=== PATIENT | female | born 2000 | race Two or more races ===

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

== ENCOUNTER 2022-07-14 17:59 | Emergency (ER) | payer BC, MEDICAID ==
[~2022-07-14] VITALS: Ht 160 cm; Wt 109.0 kg
[2022-07-14 18:30] LABS: Basophils # (auto) 0.2 10 ^3/uL (0-0.2); Basophils % (auto) 2.8 % (0.0-2.0); Eosinophils # (auto) 0.1 10 ^3/uL (0-0.8); Eosinophils % (auto) 1.9 % (0.0-7.0); Hematocrit 44.7 % (36.0-46.0); Hemoglobin 14.6 g/dL (12.2-16.2); Lymphocytes % (auto) 12.9 % (10.0-50.0); Mean Corpuscular Hgb Conc. 32.7 g/dL (32.0-36.0); Mean Corpuscular Volume 91.8 fL (80.0-100.0); Monocytes # (auto) 0.5 10 ^3/uL (0-1.3); Neutrophils # (auto) 5.8 10 ^3/uL (1.6-8.6); Neutrophils % (auto) 75.4 % (37.0-80.0); Nucleated Red Blood Cells % 0.1 %; Red Blood Cells 4.87 10^6/uL (4.0-5.20); Red Cell Distribution Width 13.4 % (11.8-14.3); White Blood Cell 7.7 10^3/uL (4.4-10.8)
[2022-07-14 18:52] LABS: Albumin 3.5 g/dL (3.4-5.0); BUN/Creatinine Ratio 17.3; Calcium 9.1 mg/dL (8.5-10.1); Magnesium 2.1 mg/dL (1.6-2.6); Potassium 4.4 mmol/L (3.5-5.1)
[2022-07-14 18:56] LABS: Bilirubin, Total 0.2 mg/dL (0.2-1.0); INR 0.9 (0.9-1.15); Partial Thromboplastin Time 29.5 sec (24.6-33.4); Total Protein 7.8 g/dL (6.4-8.2)
[2022-07-14] MEDS ORDERED: ACETAMINOPHEN 500 MG TAB PO ONE (19:00)
[2022-07-14] MEDS ORDERED: ONDANSETRON ODT 4 MG TAB PO ONE (19:00)
[2022-07-14 21:16] LABS: Urine Bacteria NONE SEEN /hpf (None Seen); Urine Blood Negative /uL (Negative); Urine Mucus FEW (None Seen); Urine Specific Gravity 1.019 (1.001-1.035); Urine WBC 1 /hpf (0 - 5)
[2022-07-14 21:33] LABS: Alcohol, Urine < 3.0 mg/dL (0-10); Amphetamine Screen, Urine NEGATIVE (NEGATIVE); Barbiturate Scree,Urine NEGATIVE (NEGATIVE); Benzodiazephine Screen, Urine NEGATIVE (NEGATIVE); Cannabinoid Screen, Urine POSITIVE (NEGATIVE); Cocaine Screen, Urine NEGATIVE (NEGATIVE)
[2022-07-14 21:40] LABS: Opiate Scree,Urine NEGATIVE (NEGATIVE); Phencyclidine Screen, Urine NEGATIVE (NEGATIVE)
[2022-07-14] MEDS ORDERED: GABA300C10 PO (23:01)
[2022-07-15] VITALS: BP 110/60
== END 2022-07-15 00:05 | disposition home or self-care (01) ==
LOC: ER 18:01
DX: R07.89 Other chest pain (principal); M54.14 Radiculopathy, thoracic region; I10 Essential (primary) hypertension
CPT/HCPCS: 36415; 71045; 80053; 80307; 81001; 83735; 83880; 84484; 85025; 85610; 85730; 93005; 99285; Q0162

== ENCOUNTER 2023-02-19 06:59 | Inpatient (IN) | payer MEDICAID ==
[~2023-02-19] VITALS: Ht 215.9 cm; Wt 135.4 kg
[~2023-02-19 06:59] MED LIST: GABA-1250 PO
[2023-02-19 07:31] LABS: Basophils # (auto) 0.1 10 ^3/uL (0-0.2); Basophils % (auto) 1.2 % (0.0-2.0); Eosinophils # (auto) 0.2 10 ^3/uL (0-0.8); Eosinophils % (auto) 2.8 % (0.0-7.0); Hematocrit 42.9 % (36.0-46.0); Hemoglobin 14.2 g/dL (12.2-16.2); Lymphocytes # (auto) 1.8 10 ^3/uL (0.4-5.4); Lymphocytes % (auto) 24.3 % (10.0-50.0); Mean Corpuscular Hemoglobin 30.6 pg (28.0-32.0); Mean Corpuscular Hgb Conc. 33.2 g/dL (32.0-36.0); Mean Corpuscular Volume 92.2 fL (80.0-100.0); Monocytes # (auto) 0.8 10 ^3/uL (0-1.3); Monocytes % (auto) 9.9 % (0.0-12.0); Neutrophils # (auto) 4.7 10 ^3/uL (1.6-8.6); Neutrophils % (auto) 61.8 % (37.0-80.0); Red Blood Cells 4.65 10^6/uL (4.0-5.20); Red Cell Distribution Width 13.6 % (11.8-14.3); White Blood Cell 7.6 10^3/uL (4.4-10.8)
[2023-02-19] MEDS ORDERED: SODIUM CHLORIDE 0.9% 1,000 ML IV ONE (07:45)
[2023-02-19] MEDS ORDERED: ONDANSETRON HCL 4 MG/2 ML VIAL IV ONE (07:45)
[2023-02-19] MEDS ORDERED: MORPHINE SULFATE 4 MG/ML SYR/VIAL IV ONE (07:45)
[2023-02-19 07:55] LABS: Alanine Aminotransferase 33 U/L (7-40); Alkaline Phosphatase 93 U/L (46-116); Carbon Dioxide 25.5 mmol/L (20-30); Chloride 108 mmol/L (98-107); Glucose 125 mg/dL (74-106)
[2023-02-19 07:56] LABS: Albumin 4.2 g/dL (3.2-4.8); Anion Gap 5.5 (5-15); Aspartate Aminotransferase 21 U/L (13-40); BUN/Creatinine Ratio 13.8 (10.0-20.0); Bilirubin, Total 0.2 mg/dL (0.2-1.0); Blood Urea Nitrogen 9 mg/dL (9-23); Lipase 42 U/L (12-53); Potassium 4.4 mmol/L (3.5-5.1); Sodium 139 mmol/L (136-145); Total Protein 7.4 g/dL (5.7-8.2)
[2023-02-19] MEDS ORDERED: FAMOTIDINE (10MG/ML) 2ML VL IV ONE (08:00)
[2023-02-19] MEDS ORDERED: MAALOX PLUS or MAALOX 30 ML PO ONE (08:00)
[2023-02-19] MEDS ORDERED: cefTRIAXone 1GM/50ML D5W 50 ML IV ONE (11:45)
[2023-02-19] MEDS ORDERED: SODIUM CHLORIDE 0.9% 1,000 ML IV SCH (11:45)
[2023-02-19] MEDS ORDERED: ACETAMINOPHEN 325 MG TAB PO PRN (11:45)
[2023-02-19 12:02] LABS: Urine Bacteria FEW /hpf (None Seen); Urine Blood Negative /uL (Negative); Urine Clarity Clear (Clear); Urine Color Yellow (Yellow); Urine Protein, UAD Negative (Negative); Urine Specific Gravity 1.018 (1.001-1.035); Urine Urobilinogen Normal (Negative); Urine WBC <1 /hpf (0 - 5)
[2023-02-19] MEDS: metroNIDAZOLE 500MG/100ML 100 ML IV SCH ×2 (14:46→22:01)
[2023-02-19] MEDS: HYDROcodone-ACET 5/325MG TAB PO PRN ×2 (14:46→20:14)
[2023-02-19 15:37] VITALS: BP 121/62; PULSE 68; RESP 20; TEMP 97.7; O2SAT 95
[2023-02-19 15:45] LABS: INR 0.97 (0.9-1.15); Partial Thromboplastin Time 27.7 SEC (24.5-34.5); Prothrombin Time 10.2 sec (9.3-11.8)
[2023-02-19 15:49] VITALS: BP 121/62; PULSE 68; RESP 20; O2SAT 95
[2023-02-19] MEDS: ONDANSETRON HCL 4 MG/2 ML VIAL IV PRN (20:14)
[2023-02-19 22:00] VITALS: BP 124/73; PULSE 82; RESP 18; TEMP 98.4; O2SAT 94
[2023-02-19] MEDS: SODIUM CHLORIDE 0.9% 1,000 ML IV SCH (22:01)
[2023-02-19] MEDS: MORPHINE SULFATE INJ 2 MG/ml SYRG IV PRN (23:37)
[2023-02-20] VITALS (8 sets, daily range): BP systolic 98–106; BP diastolic 51–61; PULSE 61–83; RESP 17–20; TEMP 97.9–98.7; O2SAT 93–100
[2023-02-20] MEDS: SODIUM CHLORIDE 0.9% 1,000 ML IV SCH ×2 (01:00→11:00)
[2023-02-20] MEDS: metroNIDAZOLE 500MG/100ML 100 ML IV SCH ×3 (05:45→22:23)
[2023-02-20 05:57] LABS: Basophils # (auto) 0 10 ^3/uL (0-0.2); Basophils % (auto) 0.5 % (0.0-2.0); Eosinophils # (auto) 0.2 10 ^3/uL (0-0.8); Eosinophils % (auto) 3.3 % (0.0-7.0); Hematocrit 40.2 % (36.0-46.0); Hemoglobin 13.7 g/dL (12.2-16.2); Lymphocytes # (auto) 1.9 10 ^3/uL (0.4-5.4); Lymphocytes % (auto) 30.6 % (10.0-50.0); Mean Corpuscular Hemoglobin 31.2 pg (28.0-32.0); Mean Corpuscular Hgb Conc. 34.1 g/dL (32.0-36.0); Mean Corpuscular Volume 91.4 fL (80.0-100.0); Monocytes # (auto) 0.6 10 ^3/uL (0-1.3); Monocytes % (auto) 9.9 % (0.0-12.0); Neutrophils # (auto) 3.5 10 ^3/uL (1.6-8.6); Neutrophils % (auto) 55.7 % (37.0-80.0); Nucleated Red Blood Cells % 0.1 %; Red Blood Cells 4.39 10^6/uL (4.0-5.20); White Blood Cell 6.3 10^3/uL (4.4-10.8)
[2023-02-20 06:03] LABS: Alanine Aminotransferase 711 U/L (7-40); Albumin 3.8 g/dL (3.2-4.8); Alkaline Phosphatase 132 U/L (46-116); Anion Gap 7.3 (5-15); Aspartate Aminotransferase 787 U/L (13-40); BUN/Creatinine Ratio 9.1 (10.0-20.0); Bilirubin, Total 2.5 mg/dL (0.2-1.0); Blood Urea Nitrogen 6 mg/dL (9-23); Calcium 8.5 mg/dL (8.5-10.1); Carbon Dioxide 25.7 mmol/L (20-30); Chloride 106 mmol/L (98-107); Glucose 91 mg/dL (74-106); Potassium 3.8 mmol/L (3.5-5.1); Sodium 139 mmol/L (136-145); Total Protein 6.7 g/dL (5.7-8.2)
[2023-02-20] MEDS: cefTRIAXone 1GM/50ML D5W 50 ML IV SCH (08:48)
[2023-02-20] MEDS: FAMOTIDINE (10MG/ML) 2ML VL IV SCH (09:15)
[2023-02-20] MEDS ORDERED: ceFAZolin 1GM/50ML 100 ML IV ONE (12:29)
[2023-02-20] MEDS ORDERED: SUCCINYLCHOLINE CHLORIDE 20 MG/ML 10ML VIAL IV ONE (12:34)
[2023-02-20] MEDS ORDERED: LIDOCAINE 2% (LOCAL ANESTH.) PF 5ml SDV IJ ONE (12:34)
[2023-02-20] MEDS ORDERED: MIDAZOLAM HCL 2MG/2ML 2ml VIAL (1mg/ml) ONE (13:54)
[2023-02-20] MEDS ORDERED: fentaNYL CITRATE 100 MCG/2 ML VL ONE ×2 (13:54→14:57)
[2023-02-20] MEDS ORDERED: ONDANSETRON HCL 4 MG/2 ML VIAL IV PRN (14:45)
[2023-02-20] MEDS ORDERED: HYDROmorphone HCL 2 MG/ML VL/or syr IV PRN (14:45)
[2023-02-20] MEDS: D5W/SOD CHL 0.45%/KCL 20MEQ 1,000 ML IV SCH (15:00)
[2023-02-20] MEDS ORDERED: PROPOFOL 10 MG/ML 20 ML IV ONE (15:16)
[2023-02-20] MEDS ORDERED: ROCURONIUM 10MG/ML 10ML VIAL IV ONE (15:17)
[2023-02-20] MEDS ORDERED: GLYCOPYRROLATE 0.2 MG/ML 1ML VIAL ONE (15:17)
[2023-02-20] MEDS ORDERED: NEOSTIGMINE 1 MG/ML INJ (10mg/10ML VIAL) ONE (15:17)
[2023-02-20] MEDS ORDERED: ONDANSETRON HCL 4 MG/2 ML VIAL ONE (15:18)
[2023-02-20] MEDS: HYDROmorphone HCL 2 MG/ML VL/or syr IV PRN ×4 (15:23→15:53)
[2023-02-20] MEDS: MORPHINE SULFATE INJ 2 MG/ml SYRG IV PRN ×2 (17:58→22:37)
[2023-02-20] MEDS: ONDANSETRON HCL 4 MG/2 ML VIAL IV PRN (19:50)
[2023-02-20] MEDS: HYDROcodone-ACET 5/325MG TAB PO PRN (20:01)
[2023-02-21] MEDS: D5W/SOD CHL 0.45%/KCL 20MEQ 1,000 ML IV SCH ×3 (02:59→21:00)
[2023-02-21] MEDS: MORPHINE SULFATE INJ 2 MG/ml SYRG IV PRN ×2 (04:51→18:19)
[2023-02-21 05:00] VITALS: BP 105/68; PULSE 64; RESP 19; TEMP 98.4; O2SAT 94
[2023-02-21] MEDS: metroNIDAZOLE 500MG/100ML 100 ML IV SCH ×3 (06:16→21:30)
[2023-02-21 06:23] LABS: Basophils # (auto) 0.1 10 ^3/uL (0-0.2); Basophils % (auto) 0.7 % (0.0-2.0); Chloride 106 mmol/L (98-107); Eosinophils # (auto) 0.1 10 ^3/uL (0-0.8); Eosinophils % (auto) 1.5 % (0.0-7.0); Hematocrit 40.8 % (36.0-46.0); Hemoglobin 13.6 g/dL (12.2-16.2); Lymphocytes # (auto) 1.2 10 ^3/uL (0.4-5.4); Lymphocytes % (auto) 17.3 % (10.0-50.0); Mean Corpuscular Hemoglobin 30.4 pg (28.0-32.0); Mean Corpuscular Hgb Conc. 33.4 g/dL (32.0-36.0); Mean Corpuscular Volume 91.1 fL (80.0-100.0); Monocytes # (auto) 0.7 10 ^3/uL (0-1.3); Monocytes % (auto) 9.5 % (0.0-12.0); Nucleated Red Blood Cells % 0.1 %; Potassium 3.7 mmol/L (3.5-5.1); Red Blood Cells 4.48 10^6/uL (4.0-5.20); Sodium 137 mmol/L (136-145); White Blood Cell 7.1 10^3/uL (4.4-10.8)
[2023-02-21 06:24] LABS: Anion Gap 6.6 (5-15); Calcium 8.8 mg/dL (8.7-10.4); Carbon Dioxide 24.4 mmol/L (20-30)
[2023-02-21 06:29] LABS: Glucose 118 mg/dL (74-106)
[2023-02-21 06:30] LABS: BUN/Creatinine Ratio 9.3 (10.0-20.0); Blood Urea Nitrogen < 5 mg/dL (9-23)
[2023-02-21 06:31] LABS: Bilirubin, Total 3.4 mg/dL (0.2-1.0)
[2023-02-21 07:46] LABS: Albumin 3.9 g/dL (3.2-4.8); Bilirubin, Direct 2.3 mg/dL (<0.3); Bilirubin, Total 3.4 mg/dL (0.2-1.0); Total Protein 6.9 g/dL (5.7-8.2)
[2023-02-21 08:55] VITALS: BP 112/57; PULSE 70; RESP 18; TEMP 98.2; O2SAT 97
[2023-02-21] MEDS: HYDROcodone-ACET 5/325MG TAB PO PRN (09:21)
[2023-02-21] MEDS: cefTRIAXone 1GM/50ML D5W 50 ML IV SCH (09:21)
[2023-02-21] MEDS: FAMOTIDINE (10MG/ML) 2ML VL IV SCH (09:21)
[2023-02-21] MEDS ORDERED: KETOROLAC TROMETH 30 MG/ML 1ML VIAL IV PRN (14:15)
[2023-02-21] MEDS ORDERED: KETOROLAC TROMETH 30 MG/ML 1ML VIAL IV ONE (14:15)
[2023-02-21 15:05] VITALS: BP 107/51; PULSE 57; RESP 19; TEMP 98.9; O2SAT 94
[2023-02-21 16:58] VITALS: BP 113/62; PULSE 69; RESP 18; TEMP 98.3; O2SAT 94
[2023-02-21] MEDS: ONDANSETRON HCL 4 MG/2 ML VIAL IV PRN (18:19)
[2023-02-21 19:50] VITALS: PULSE 65; RESP 16; O2SAT 96
[2023-02-21] MEDS ORDERED: TEMAZEPAM 15 MG CAP PO ONE (20:45)
[2023-02-21 21:50] VITALS: BP 128/69; PULSE 65; RESP 20; TEMP 97.4; O2SAT 99
[2023-02-22 05:13] VITALS: BP 97/54; PULSE 80; RESP 20; TEMP 98.4; O2SAT 96
[2023-02-22] MEDS: metroNIDAZOLE 500MG/100ML 100 ML IV SCH (05:43)
[2023-02-22 06:51] LABS: Basophils # (auto) 0.1 10 ^3/uL (0-0.2); Basophils % (auto) 0.9 % (0.0-2.0); Eosinophils # (auto) 0.2 10 ^3/uL (0-0.8); Eosinophils % (auto) 3.2 % (0.0-7.0); Hematocrit 41.5 % (36.0-46.0); Hemoglobin 13.6 g/dL (12.2-16.2); Lymphocytes # (auto) 1.8 10 ^3/uL (0.4-5.4); Lymphocytes % (auto) 27.4 % (10.0-50.0); Mean Corpuscular Hemoglobin 30.1 pg (28.0-32.0); Mean Corpuscular Hgb Conc. 32.7 g/dL (32.0-36.0); Monocytes # (auto) 0.7 10 ^3/uL (0-1.3); Monocytes % (auto) 10.1 % (0.0-12.0); Neutrophils # (auto) 3.8 10 ^3/uL (1.6-8.6); Neutrophils % (auto) 58.4 % (37.0-80.0); Red Blood Cells 4.51 10^6/uL (4.0-5.20); White Blood Cell 6.5 10^3/uL (4.4-10.8)
[2023-02-22 06:55] LABS: Alanine Aminotransferase 448 U/L (7-40); Albumin 3.7 g/dL (3.2-4.8); Alkaline Phosphatase 162 U/L (46-116); Anion Gap 7.4 (5-15); Aspartate Aminotransferase 169 U/L (13-40); Calcium 8.6 mg/dL (8.7-10.4); Carbon Dioxide 23.6 mmol/L (20-30); Chloride 107 mmol/L (98-107); Glucose 95 mg/dL (74-106); Potassium 3.4 mmol/L (3.5-5.1); Sodium 138 mmol/L (136-145)
[2023-02-22 06:56] LABS: BUN/Creatinine Ratio 7.6 (10.0-20.0); Blood Urea Nitrogen < 5 mg/dL (9-23); Total Protein 6.7 g/dL (5.7-8.2)
[2023-02-22] MEDS: D5W/SOD CHL 0.45%/KCL 20MEQ 1,000 ML IV SCH (07:09)
[2023-02-22] MEDS ORDERED: POTASSIUM CHL 20 Meq TABLET PO ONE (07:15)
[2023-02-22 08:00] VITALS: O2SAT 99
[2023-02-22 09:00] VITALS: BP 139/69; PULSE 81; RESP 19; TEMP 98.3; O2SAT 96
[2023-02-22] MEDS: cefTRIAXone 1GM/50ML D5W 50 ML IV SCH (09:25)
[2023-02-22] MEDS: FAMOTIDINE (10MG/ML) 2ML VL IV SCH (09:25)
[2023-02-22] MEDS ORDERED: CEPH500T PO (11:14)
[2023-02-22] MEDS ORDERED: TRAM50TA2 PO (11:14)
[2023-02-22 12:03] VITALS: BP 139/69; PULSE 81; RESP 19; TEMP 98.3; O2SAT 96
== END 2023-02-22 12:35 | disposition home or self-care (01) | DRG 263 ==
LOC: ER 06:59 → OVERFLOW 11:51 → EAST 15:38
PROVIDERS: ADMIT Internal Medicine
PROC: 0FT44ZZ Resection of Gallbladder, Percutaneous Endoscopic Approach (ICD-10-PCS; principal; 2023-02-20 13:46)
DX: K80.00 Calculus of gallbladder with acute cholecystitis without obstruction (principal); K76.0 Fatty (change of) liver, not elsewhere classified; E66.01 Morbid (severe) obesity due to excess calories; K57.30 Diverticulosis of large intestine without perforation or abscess without bleeding; I10 Essential (primary) hypertension; Z82.49 Family history of ischemic heart disease and other diseases of the circulatory system; Z68.29 Body mass index [BMI] 29.0-29.9, adult
CPT/HCPCS: 36415; 74176; 74181; 76705; 80048; 80053; 80076; 81001; 82247; 83690; 84484; 84702; 85025; 85610; 85730; 86850; 86900; 86901; 93005; 96365; 96375; 96376; G0378; J0330; J0690; J0696; J1885; J2001; J2250; J2405; J2704; J3490

== ENCOUNTER 2024-06-22 19:26 | Inpatient (IN) | payer MEDICAID ==
[~2024-06-22] VITALS: Ht 160 cm; Wt 100.0 kg
[~2024-06-22 19:26] MED LIST changes: +CEPH500T PO; +TRAM50TA2 PO; +ZOFR4T PO
[2024-06-22 20:23] LABS: Basophils # (auto) 0.1 10 ^3/uL (0-0.2); Eosinophils # (auto) 0.1 10 ^3/uL (0-0.8); Eosinophils % (auto) 1.1 % (0.0-7.0); Hematocrit 46.8 % (36.0-46.0); Hemoglobin 16.1 g/dL (12.2-16.2); Lymphocytes # (auto) 1.1 10 ^3/uL (0.4-5.4); Lymphocytes % (auto) 12.2 % (10.0-50.0); Mean Corpuscular Hemoglobin 33.9 pg (28.0-32.0); Mean Corpuscular Hgb Conc. 34.4 g/dL (32.0-36.0); Mean Corpuscular Volume 98.6 fL (80.0-100.0); Monocytes # (auto) 0.4 10 ^3/uL (0-1.3); Monocytes % (auto) 4.2 % (0.0-12.0); Neutrophils # (auto) 7.3 10 ^3/uL (1.6-8.6); Neutrophils % (auto) 81.5 % (37.0-80.0); Nucleated Red Blood Cells % 0.1 %; Platelet Count (auto) 283 10^3/uL (140-450); Red Blood Cells 4.75 10^6/uL (4.0-5.20); Red Cell Distribution Width 14.2 % (11.8-14.3); White Blood Cell 8.9 10^3/uL (4.4-10.8)
[2024-06-22 20:29] LABS: Chloride 107 mmol/L (98-107); Sodium 141 mmol/L (136-145)
[2024-06-22 20:30] LABS: Anion Gap 9 (5-15); Carbon Dioxide 25 mmol/L (20-31)
[2024-06-22 20:31] LABS: Calcium 9.7 mg/dL (8.7-10.4)
--- NOTE | 2024-06-22 20:32 | ED.PDOC ---
History of Present Illness HPI Comments 24 y/o F, with a Hx of anxiety, HTN, obesity, gastric sleeve, cholecystectomy, and marijuana and nicotine vape use, presents with c/o non-radiating, suprapubic abdominal pain and nausea, today. Patient endorses on sudden and unprovoked onset of symptoms at around 1730, this evening. She comments on pain worsening whenever breathing or moving and describes it as "pushing" and "stabbing" in quality. Patient also reports on not eating any food for the past 2x days and having chronic, intermittent nausea and vomiting symptoms since having a gastric sleeve and ulcers in October 2023. Patient denies any vomiting, diarrhea, urinary symptoms, vaginal bleeding, fever, chills, or other associated symptoms or modifiers at this time. Chief Complaint: Abdominal Pain Time Seen by MD: 19:45 Primary Care Provider: NONE Reviewed Notes: Nurses Notes, Medications, Allergies Allergies: Coded Allergies: NO KNOWN ALLERGIES (Unverified , 07/31/18) Home Meds Active Scripts Ondansetron Odt 4MG Tab (ZOFRAN PO) 4 Mg Tb, 4 MG PO Q8HP PRN for 5 Days, #15 TAB ODT TAB-DISSOLVE IN MOUTH, THEN SWALLOW Prov:ESTELLA VILLATORO MD 09/06/23 Tramadol Hcl (Tramadol Hcl) 50 Mg Tab, 50 MG PO TIDP PRN for 5 Days, #15 TAB Prov:JENY KRAUS MD 02/22/23 Cephalexin Monohydrate (Cephalexin) 500 Mg Tab, 1 TAB PO TID for 7 Days, #21 TAB Prov:JENY KRAUS MD 02/22/23 Gabapentin (Gabapentin) 300 Mg Cap, 1 CAP PO TID, #30 CAP 5 Refills Prov:PITA NICKERSON PAC 07/14/22 Information Source: Patient Mode of Arrival: Ambulatory Severity: Moderate Timing: Hours Duration: Since onset Prehospital treatment: None Past Medical History PAST MEDICAL HISTORY: Anxiety, HTN Past Medical History (Other): obesity Surgical History: Cholecystectomy Surgical History (Other): gastric sleeve 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: 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 all 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 REPLANTER Hx Family History Family History: Family hx of HTN Social History Smoker: Other (nicotine vape use ) Alcohol: Denies ETOH Use Drugs: Marijuana Lives In: Home Gastrointestinal: reports: abdominal pain, nausea All Other Systems: Reviewed and Negative (negative unless otherwise stated above or in HPI) Physical Exam General Appearance: No Apparent Distress, Obese HEENT: Normal ENT Inspection, Pharynx Normal, TMs Normal Neck: Full Range of Motion, Non-Tender, Normal, Normal Inspection Respiratory: Chest Non-Tender, Lungs Clear, No Accessory Muscle Use, No Respiratory Distress, Normal Breath Sounds Cardiovascular: No Edema, No JVD, No Murmur, No Gallop, Normal Peripheral Pulses, Regular Rate/Rhythm Breast Exam: Deferred Gastrointestinal: No Organomegaly, No Pulsatile Mass, Normal Bowel Sounds, Soft, Suprapubic (tenderness ), Tenderness (suprapubic region ) Genitalia: Deferred Pelvic: Deferred Rectal: Deferred Extremities: No calf tenderness, Normal capillary refill, Normal inspection, Normal range of motion, Non-tender, No pedal edema Musculoskeletal : Apperance: Normal Neurologic: Alert, 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 Was a procedure done?: No Differential Dx Considerations may include: gastritis, gastroenteritis, PUD, GERD, spoiled food, , cystitis, PID, acute abdomen, cannabinoid hyperemesis syndrome X-Ray, Labs, Meds, VS Vital Signs Date Time Temp Pulse Resp B/P (MAP) Pulse Ox O2 Delivery O2 Flow Rate FiO2 06/22/24 19:40 97.9 67 18 131/76 (94) 96 Lab Test 06/22/24 19:55 06/22/24 19:49 Range/Units White Blood Count 8.9 4.4-10.8 10^3/uL Red Blood Count 4.75 4.0-5.20 10^6/uL Hemoglobin 16.1 12.2-16.2 g/dL Hematocrit 46.8 H 36.0-46.0 % Mean Corpuscular Volume 98.6 80.0-100.0 fL Mean Corpuscular Hemoglobin 33.9 H 28.0-32.0 pg Mean Corpuscular Hemoglobin Concent 34.4 32.0-36.0 g/dL Red Cell Distribution Width 14.2 11.8-14.3 % Platelet Count 283 140-450 10^3/uL Mean Platelet Volume 9.0 6.9-10.8 fL Neutrophils (%) (Auto) 81.5 H 37.0-80.0 % Lymphocytes (%) (Auto) 12.2 10.0-50.0 % Monocytes (%) (Auto) 4.2 0.0-12.0 % Eosinophils (%) (Auto) 1.1 0.0-7.0 % Basophils (%) (Auto) 1.0 0.0-2.0 % Neutrophils # (Auto) 7.3 1.6-8.6 10 ^3/uL Lymphocytes # (Auto) 1.1 0.4-5.4 10 ^3/uL Monocytes # (Auto) 0.4 0-1.3 10 ^3/uL Eosinophils # (Auto) 0.1 0-0.8 10 ^3/uL Basophils # (Auto) 0.1 0-0.2 10 ^3/uL Nucleated Red Blood Cells 0.1 % Sodium Level 141 136-145 mmol/L Potassium Level 3.4 L 3.5-5.1 mmol/L Chloride Level 107 98-107 mmol/L Carbon Dioxide Level 25 20-31 mmol/L Anion Gap 9 5-15 Blood Urea Nitrogen < 5 L 9-23 mg/dL Creatinine 0.58 0.550-1.02 mg/dL Glomerular Filtration Rate Calc 131 >90 mL/min BUN/Creatinine Ratio 8.6 L 10.0-20.0 Serum Glucose 80 74-106 mg/dL Calcium Level 9.7 8.7-10.4 mg/dL Lipase 29 12-53 U/L Urine Color Light-yellow Yellow Urine Clarity Clear Clear Urine pH 6.5 5.0-9.0 Urine Specific [place] 1.010 1.001-1.035 Urine Protein Negative Negative Urine Ketones Negative Negative Urine Blood Negative Negative /uL Urine Nitrite Negative Negative Urine Bilirubin Negative Negative Urine Urobilinogen Normal Negative mg/dL Urine Leukocyte Esterase Negative Negative /uL Urine RBC <1 0 - 4 /hpf Urine WBC 5 0 - 5 /hpf Urine Squamous Epithelial Cells Few <5 /hpf Urine Bacteria None seen None Seen /hpf Urine Glucose Normal Normal mg/dL Urine Opiates Screen Neg NEGATIVE Urine Fentanyl Screen Neg NEGATIVE Urine Barbiturates Screen Neg NEGATIVE Urine Phencyclidine Screen Neg NEGATIVE Urine Amphetamines Screen Neg NEGATIVE Urine Benzodiazepines Screen Neg NEGATIVE Urine Cocaine Screen Neg NEGATIVE Urine Cannabinoids Screen Pos NEGATIVE Current Medications Medications (Trade) Dose Ordered Sig/Chikis Route Start Time Stop Time Status Last Admin Ondansetron HCl (Zofran Po) 4 mg ONCE ONCE PO 06/22/24 20:00 06/22/24 20:01 DC 06/22/24 22:11 Acetaminophen/ Hydrocodone Bitart ([place] 10/325MG Tab) 1 tab ONCE ONCE PO 06/22/24 20:00 06/22/24 20:01 DC 06/22/24 22:10 [place] [address] Ph: [phone] DIAGNOSTIC IMAGING Diagnostic Imaging Report : [id number] Signed PATIENT: ARJUN VASQUEZACCT: [id number] UNIT: [id number] : 2000 LOC: ER ROOM / BED: / AGE / SEX: 24 / F ADM STATUS: REG ER SERVICE 53 ORDERING PHYSICIAN: PRISCILLA GUO MD PROCEDURE(s): ABPL - CT AB PEL WO CON-NO ORAL OR IV REASON: abd pain; s/p lap band ORDER NUMBER(s): [id number], ACCESSION NUMBER(s): [id number] CT SCAN ABDOMEN AND PELVIS WITHOUT CONTRAST CLINICAL HISTORY: abd pain; s/p lap band TECHNIQUE: Helical axial images are obtained from the lung bases through the pelvis without oral contrast. No intravenous contrast was administered. Coronal and sagittal reformatted images were generated from thin section reconstructions. One or more of the following radiation dose reduction techniques were used for this examination: automated exposure control, adjustment of the mA and/or kV according to patient size, use of iterative reconstruction technique. COMPARISON: CT CT AB PEL WO CON-NO ORAL OR IV on DOS: 09/06/23 FINDINGS: LOWER THORAX: Approximately 5 mm pulmonary nodule noted in the anterior right lung base. ABDOMEN AND PELVIS: Evaluation of visceral and vascular structures is limited due to lack of contrast administration. As visualized, the unenhanced liver, spleen, pancreas and adrenals appear grossly unremarkable. The gallbladder is surgically absent. No appreciable biliary ductal dilatation. Stable appearing small ventral fat containing hernia anterior to the left hepatic lobe. No hydroureteronephrosis or sizable, obstructing urinary tract calculi identified. No evidence of abdominal aortic aneurysm. Patient appears to be status post sleeve gastrectomy. No evidence of small-bowel obstruction. Normal caliber appendix. Colonic diverticulosis. Fat stranding noted adjacent to the distal descending colon which contains a tiny focus of extraluminal air. No sizable pericolonic fluid collections identified at this time. No sizable bladder calculus. Small amount of free pelvic fluid may be reactive. No destructive osseous lesions identified. IMPRESSION: Diverticulitis with microperforation involving the distal descending colon. Othe rwise no sizable, pericolonic fluid collections identified at this time. Recommend follow-up to resolution. Other findings as above. ATED BY: TEZ ABARCA MD DICTATED DATE/TIME: 06/22/242247 SIGNED BY: TEZ ABARCA MD SIGNED DATE/TIME: 06/22/242247 CC: CBC and CMP were normal. UA is normal. UDS shows positive for marijuana. Patient was given IV fluids NG tube and antibiotics and analgesics for di verticulitis with microperforation her radiation. The surgeon will be consulted and the patient will be admitted to the hospitalist for further evaluation. Time of 1ST Reevaluation: 20:15 Reevaluation 1ST: Unchanged Patient Education/Counseling: Diagnosis, Treatment Family Education/Counseling: No Family Present Departure 1 Departure Time of Disposition: 00:49 Impression: Primary Impression: Diverticulitis of intestine Qualified Codes: K57.20 - Diverticulitis of large intestine with perforation and abscess without bleeding Disposition: ADMITTED INPATIENT Admit to: Med Surg Condition: Guarded Critical Care Note Critical Care Time?: Yes (35 min-critical care time only) Stability Stability form required: No Heart Score Heart Score: Heart Score Response (Comments) Value History N/A 0 EKG N/A 0 Age N/A 0 Risk Factors N/A 0 Troponin N/A 0 Total 0 I personally scribed for PRISCILLA GUO MD ([email or web address]) on 06/22/24 at 20:32. Electronically submitted by Dakota Thomas ([email or web address]). PRISCILLA GUO MD Jun 22, 2024 20:32
[2024-06-22 20:35] LABS: Glucose 80 mg/dL (74-106)
[2024-06-22 20:36] LABS: Lipase 29 U/L (12-53)
[2024-06-22 20:48] LABS: BUN/Creatinine Ratio 8.6 (10.0-20.0); Blood Urea Nitrogen < 5 mg/dL (9-23); Potassium 3.4 mmol/L (3.5-5.1)
[2024-06-22] MEDS: HYDROcodone-ACET 10/325MG TAB PO ONE (22:10)
[2024-06-22] MEDS: ONDANSETRON ODT 4 MG TAB PO ONE (22:11)
[2024-06-22 22:15] LABS: Urine Bacteria None Seen /hpf (None Seen)
[2024-06-22 22:46] LABS: Amphetamine Screen, Urine Neg (NEGATIVE); Barbiturate Scree,Urine Neg (NEGATIVE); Benzodiazephine Screen, Urine Neg (NEGATIVE); Cannabinoid Screen, Urine Pos (NEGATIVE); Cocaine Screen, Urine Neg (NEGATIVE); Opiate Scree,Urine Neg (NEGATIVE); Phencyclidine Screen, Urine Neg (NEGATIVE)
--- NOTE | 2024-06-22 22:50 | DVH ---
CT SCAN ABDOMEN AND PELVIS WITHOUT CONTRAST CLINICAL HISTORY: abd pain; s/p lap band TECHNIQUE: Helical axial images are obtained from the lung bases through the pelvis without oral cont rast. No intravenous contrast was administered. Coronal and sagittal reformatted images were generate d from thin section reconstructions. One or more of the following radiation dose reduction techniques were used for this examination: automated exposure control, adjustment of the mA and/or kV according to patient size, use of iterative reconstruction technique. COMPARISON: CT CT AB PEL WO CON-NO ORAL OR IV on DOS: 09/06/23 FINDINGS: LOWER THORAX: Approximately 5 mm pulmonary nodule noted in the anterior right lung base. ABDOMEN AND PELVIS: Evaluation of visceral and vascular structures is limited due to lack of contrast administration. As visualized, the unenhanced liver, spleen, pancreas and adrenals appear grossly unremarkable. The g allbladder is surgically absent. No appreciable biliary ductal dilatation. Stable appearing small ventral fat containing hernia anterior to the left hepatic lobe. No hydroureteronephrosis or sizable, obstructing urinary tract calculi identified. No evidence of abdominal aortic aneurysm. Patient appears to be status post sleeve gastrectomy. No evidence of small-bowel obstruction. Normal caliber appendix. Colonic diverticulosis. Fat stranding noted adjacent to the distal descending colon which contains a tiny focus of extraluminal air. No sizable pericolonic fluid collections identified at this time. No sizable bladder calculus. Small amount of free pelvic fluid may be reactive. No destructive osseous lesions identified. IMPRESSION: Diverticulitis with microperforation involving the distal descending colon. Otherwise no sizable, per icolonic fluid collections identified at this time. Recommend follow-up to resolution. Other findings as above.
[2024-06-22 23:06] LABS: Urine Blood Negative /uL (Negative); Urine Clarity Clear (Clear); Urine Color Light-Yellow (Yellow); Urine Protein, UAD Negative (Negative); Urine Squamous Epithelial Cell FEW /hpf (<5); Urine Urobilinogen Normal (Negative); Urine WBC 5 /hpf (0 - 5); Urine pH 6.5 (5.0-9.0)
[2024-06-23] VITALS (9 sets, daily range): BP systolic 104–137; BP diastolic 55–79; PULSE 46–62; RESP 16–18; TEMP 97.8–98.4; O2SAT 18–99
[2024-06-23] MEDS ORDERED: fentaNYL CITRATE 100 MCG/2 ML VL IV ONE (00:30)
[2024-06-23] MEDS: metroNIDAZOLE 500MG/100ML 100 ML IV ONE (03:00)
[2024-06-23] MEDS: levoFLOXacin 500MG 100 ML IV ONE (03:00)
[2024-06-23] MEDS: MORPHINE SULFATE INJ 2 MG/ml SYRG IV PRN (03:50)
[2024-06-23] MEDS: SODIUM CHLORIDE 0.9% 3,000 ML IV ONE (04:14)
--- NOTE | 2024-06-23 04:29 | DVHHP2 ---
History of Present Illness Reason for Visit: Abdominal pain History of Present Illness 24-year-old female presents for evaluation of abdominal pain. Patient presents with a one day history of lower abdominal/suprapubic abdominal pain that is nonradiating with associated nausea. She also reports intermittent episodes of chills. No diarrhea. No other acute complaints reported. Past Medical History Hypertension anxiety Past Surgical History Cholecystectomy and gastric sleeve Family History Hypertension Smoke: No ALCOHOL: none Drugs: Marijuana Lives: with Family Review of Systems Review of Systems Review of systems are currently negative otherwise addressed in HPI. Allergies: Coded Allergies: NO KNOWN ALLERGIES (Unverified , 07/31/18) Medications Current Medications Medications Dose Ordered Sig/Chikis Route Start Time Stop Time Status Last Admin Dose Admin Ceftriaxone Sodium 50 ml @ 100 mls/hr DAILY@09 IV 06/23/24 09:00 Metronidazole 100 ml @ 100 mls/hr Q8HR IV 06/23/24 06:00 Sodium Chloride 1,000 ml @ 90 mls/hr Q11H7M IV 06/23/24 01:45 Ondansetron HCl 4 mg Q4HP PRN IV 06/23/24 01:45 Morphine Sulfate 2 mg Q4HPRN PRN IV 06/23/24 01:45 06/23/24 03:50 2 MG Exam Vital Signs Vital Signs Date Time Temp Pulse Resp B/P (MAP) Pulse Ox O2 Delivery O2 Flow Rate FiO2 06/23/24 03:50 63 16 118/66 06/22/24 19:40 97.9 96 Exam Gen: 24-year-old female in mild distress Skin: Warm, dry, normal color and texture, no rash. HEENT: Normocephalic atraumatic, mucous membranes moist and pink. Neck: Cervical and supraclavicular nodes normal without enlargement, trachea is midline, thyroid gland is normal without masses. Pulmonary: Clear to auscultation and percussion bilaterally. Cardiac: Regular rate and rhythm. No murmur Abdomen: Soft, suprapubic tenderness, nondistended, bowel sounds present all 4 quadrants, no guarding, no rigidity, no organomegaly. Extremities: No cyanosis, clubbing, no edema Neuro: Cranial nerves II through XII grossly intact, normal affect and speech, no focal motor deficits. Labs/Xrays ORDERING PHYSICIAN: PRISCILLA GUO MD PROCEDURE(s): ABPL - CT AB PEL WO CON-NO ORAL OR IV REASON: abd pain; s/p lap band ORDER NUMBER(s): [id number], ACCESSION NUMBER(s): [id number] CT SCAN ABDOMEN AND PELVIS WITHOUT CONTRAST CLINICAL HISTORY: abd pain; s/p lap band TECHNIQUE: Helical axial images are obtained from the lung bases through the pelvis without oral contrast. No intravenous contrast was administered. Coronal and sagittal reformatted images were generated from thin section recons tructions. One or more of the following radiation dose reduction techniques were used for this examination: automated exposure control, adjustment of the mA and/or kV according to patient size, use of iterative reconstruction technique. COMPARISON: CT CT AB PEL WO CON-NO ORAL OR IV on DOS: 09/06/23 FINDINGS: LOWER THORAX: Approximately 5 mm pulmonary nodule noted in the anterior right lung base. ABDOMEN AND PELVIS: Evaluation of visceral and vascular structures is limited due to lack of contrast administration. As visualized, the unenhanced liver, spleen, pancreas and adrenals appear grossly unremarkable. The gallbladder is surgically absent. No appreciable biliary ductal dilatation. Stable appearing small ventral fat containing hernia anterior to the left hepatic lobe. No hydroureteronephrosis or sizable, obstructing urinary tract calculi identified. No evidence of abdominal aortic aneurysm. Patient appears to be status post sleeve gastrectomy. No evidence of small-bowel obstruction. Normal caliber appendix. Colonic diverticulosis. Fat stranding noted adjacent to the distal descending colon which contains a tiny focus of ex traluminal air. No sizable pericolonic fluid collections identified at this time. No sizable bladder calculus. Small amount of free pelvic fluid may be reactive. No destructive osseous lesions identified. IMPRESSION: Diverticulitis with microperforation involving the distal descending colon. Otherwise no sizable, pericolonic fluid collections identified at this time. Recommend follow-up to resolution. Other findings as above. Labs Test 06/22/24 19:55 06/22/24 19:49 Range/Units White Blood Count 8.9 4.4-10.8 10^3/uL Red Blood Count 4.75 4.0-5.20 10^6/uL Hemoglobin 16.1 12.2-16.2 g/dL Hematocrit 46.8 H 36.0-46.0 % Mean Corpuscular Volume 98.6 80.0-100.0 fL Mean Corpuscular Hemoglobin 33.9 H 28.0-32.0 pg Mean Corpuscular Hemoglobin Concent 34.4 32.0-36.0 g/dL Red Cell Distribution Width 14.2 11.8-14.3 % Platelet Count 283 140-450 10^3/uL Mean Platelet Volume 9.0 6.9-10.8 fL Neutrophils (%) (Auto) 81.5 H 37.0-80.0 % Lymphocytes (%) (Auto) 12.2 10.0-50.0 % Monocytes (%) (Auto) 4.2 0.0-12.0 % Eosinophils (%) (Auto) 1.1 0.0-7.0 % Basophils (%) (Auto) 1.0 0.0-2.0 % Neutrophils # (Auto) 7.3 1.6-8.6 10 ^3/uL Lymphocytes # (Auto) 1.1 0.4-5.4 10 ^3/uL Monocytes # (Auto) 0.4 0-1.3 10 ^3/uL Eosinophils # (Auto) 0.1 0-0.8 10 ^3/uL Basophils # (Auto) 0.1 0-0.2 10 ^3/uL Nucleated Red Blood Cells 0.1 % Sodium Level 141 136-145 mmol/L Potassium Level 3.4 L 3.5-5.1 mmol/L Chloride Level 107 98-107 mmol/L Carbon Dioxide Level 25 20-31 mmol/L Anion Gap 9 5-15 Blood Urea Nitrogen < 5 L 9-23 mg/dL Creatinine 0.58 0.550-1.02 mg/dL Glomerular Filtration Rate Calc 131 >90 mL/min BUN/Creatinine Ratio 8.6 L 10.0-20.0 Serum Glucose 80 74-106 mg/dL Calcium Level 9.7 8.7-10.4 mg/dL Lipase 29 12-53 U/L Urine Color Light-yellow Yellow Urine Clarity Clear Clear Urine pH 6.5 5.0-9.0 Urine Specific [place] 1.010 1.001-1.035 Urine Protein Negative Negative Urine Ketones Negative Negative Urine Blood Negative Negative /uL Urine Nitrite Negative Negative Urine Bilirubin Negative Negative Urine Urobilinogen Normal Negative mg/dL Urine Leukocyte Esterase Negative Negative /uL Urine RBC <1 0 - 4 /hpf Urine WBC 5 0 - 5 /hpf Urine Squamous Epithelial Cells Few <5 /hpf Urine Bacteria None seen None Seen /hpf Urine Glucose Normal Normal mg/dL Urine Opiates Screen Neg NEGATIVE Urine Fentanyl Screen Neg NEGATIVE Urine Barbiturates Screen Neg NEGATIVE Urine Phencyclidine Screen Neg NEGATIVE Urine Amphetamines Screen Neg NEGATIVE Urine Benzodiazepines Screen Neg NEGATIVE Urine Cocaine Screen Neg NEGATIVE Urine Cannabinoids Screen Pos NEGATIVE Assessment/Plan Assessment/Plan Assessment Acute diverticulitis Microperforation of intestine Acute abdominal pain Morbid obesity Plan Admit the patient to [facility] to the hospitalist NPO Maintenance IV fluids Pain management Surgical consultation Continue treatment per orders. Plan discussed with: Patient My Orders Orders - JENY FENTON Procedure Category Date Status Time * Surgical Consult CONS 06/23/24 Transmitted Ceftriaxone 1gm/50ml PHA 06/23/24 In Process D5w (Rocephin) 09:00 Metronidazole PHA 06/23/24 In Process 500mg/100ml (Flagyl 06:00 Sodium Chloride 0.9% PHA 06/23/24 In Process 01:45 Basic Metabolic Panel LAB 06/24/24 Verified 04:00 Admit ADMIT 06/23/24 Transmitted 01:45 Ondansetron Hcl PHA 06/23/24 In Process (Zofran) 01:45 Complete Blood Count LAB 06/24/24 Verified 04:00 Npo (Nothing By DIET 06/23/24 Transmitted Mouth) Diet Breakfast Condition: Stable CARA 06/23/24 In Process 01:45 Bedrest With Bathroom CARA 06/23/24 In Process Privileg 01:45 Morphine Sulfate PHA 06/23/24 In Process Injection 01:45 Date of Service: Jun 23, 2024 Billing Provider: JENY FENTON Common Visit Codes: [id number] INP/OBS CARE (MOD) JENY FENTON Jun 23, 2024 04:29
[2024-06-23] MEDS: metroNIDAZOLE 500MG/100ML 100 ML IV SCH (05:35)
[2024-06-23] MEDS: cefTRIAXone 1GM/50ML D5W 50 ML IV SCH (09:30)
[2024-06-23] MEDS ORDERED: ESCI1TAB36 PO (10:44)
[2024-06-23] MEDS ORDERED: PROP1TAB51 PO (10:44)
[2024-06-23] MEDS ORDERED: HYDR-3682 PO (10:44)
--- NOTE | 2024-06-23 11:27 | DVHPN2 ---
Progress Note Date Seen: Jun 23, 2024 Medical Necessity Reason Pt with a Central, PICC or Fol: No Subjective Patient reports: No new complaints Review of Systems: HEENT:Normal, CVS:Normal, RESPIRATORY:Normal, GI:Normal, :Normal, MSK:Normal, NEURO:Normal Objective vital signs Vital Sign Date Time Temp Pulse Resp B/P (MAP) Pulse Ox O2 Delivery O2 Flow Rate FiO2 06/23/24 09:06 76 18 138/86 06/23/24 08:06 98.2 94 98.2 06/23/24 04:00 Room Air* 0 21 medications Current Medications Medications Dose Ordered Sig/Chikis Route Start Time Stop Time Status Last Admin Dose Admin Ceftriaxone Sodium 50 ml @ 100 mls/hr DAILY@09 IV 06/23/24 09:00 06/23/24 09:30 100 MLS/HR Metronidazole 100 ml @ 100 mls/hr Q8HR IV 06/23/24 06:00 06/23/24 05:35 100 MLS/HR Sodium Chloride 1,000 ml @ 90 mls/hr Q11H7M IV 06/23/24 01:45 Ondansetron HCl 4 mg Q4HP PRN IV 06/23/24 01:45 Morphine Sulfate 2 mg Q4HPRN PRN IV 06/23/24 01:45 06/23/24 08:36 2 MG Examination: GENERAL:Normal, HEENT:Normal, NECK:Normal, LUNGS:Normal, CVS:Normal, ABDOMEN:Normal, ABDOMEN:Abnormal (LEFT LOWER ABD TENDERNESS), MSK:Normal, SKIN:Normal, NEURO:Normal, :Normal laboratory and microbiology Laboratory Tests 06/22/24 19:55 Test 06/22/24 19:55 Range/Units Serum Glucose 80 74-106 mg/dL Problem List/Assessment/Plan Problem List/Assessment/Plan #1 acute diverticulitis with microperforation: npo, ivf, iv antibiotics #2 obesity Plan discussed with: Patient My Orders My Orders Orders - JENY KRAUS MD Procedure Category Date Status Time Complete Blood Count LAB 06/23/24 Logged 10:58 Basic Metabolic Panel LAB 06/23/24 Logged 10:58 Complete Blood Count LAB 06/24/24 Verified 06:00 Comprehensive LAB 06/24/24 Verified Metabolic Panel 06:00 Date of Service: Jun 23, 2024 Billing Provider: JENY KRAUS MD Common Visit Codes: [id number] INP/OBS CARE(HIGH) JENY KRAUS MD Jun 23, 2024 11:27
[2024-06-23 12:14] LABS: Basophils # (auto) 0.1 10 ^3/uL (0-0.2); Basophils % (auto) 0.6 % (0.0-2.0); Eosinophils # (auto) 0.1 10 ^3/uL (0-0.8); Hematocrit 43.5 % (36.0-46.0); Hemoglobin 14.8 g/dL (12.2-16.2); Lymphocytes # (auto) 1.8 10 ^3/uL (0.4-5.4); Lymphocytes % (auto) 19.4 % (10.0-50.0); Mean Corpuscular Hemoglobin 33.8 pg (28.0-32.0); Mean Corpuscular Hgb Conc. 34.1 g/dL (32.0-36.0); Mean Corpuscular Volume 99.2 fL (80.0-100.0); Monocytes # (auto) 0.8 10 ^3/uL (0-1.3); Neutrophils # (auto) 6.6 10 ^3/uL (1.6-8.6); Platelet Count (auto) 241 10^3/uL (140-450); Red Blood Cells 4.38 10^6/uL (4.0-5.20); White Blood Cell 9.4 10^3/uL (4.4-10.8)
[2024-06-23 12:27] LABS: Anion Gap 8 (5-15); Calcium 9.3 mg/dL (8.7-10.4); Carbon Dioxide 30 mmol/L (20-31); Chloride 103 mmol/L (98-107); Sodium 141 mmol/L (136-145)
[2024-06-23 12:29] LABS: Potassium 3.1 mmol/L (3.5-5.1)
[2024-06-23 12:32] LABS: Glucose 86 mg/dL (74-106)
[2024-06-23 12:33] LABS: BUN/Creatinine Ratio 8.5 (10.0-20.0); Blood Urea Nitrogen < 5 mg/dL (9-23)
[2024-06-23] MEDS: SODIUM CHLORIDE 0.9% 1,000 ML IV SCH (12:52)
--- NOTE | 2024-06-23 16:19 | DVHINCON2 ---
GI Consult Consult Note GI consult note Date of Consultation: 06/23/2024 Chief Complaint: Diverticulitis Referring Physician: Dr. Lackey H&P: 24-year-old female presented to ER with abdominal pain Patient complains of lower abdominal pain for one day. And feeling feverish. No nausea or vomiting Patient admits to feeling constipated for one-week prior to abdominal pain starting. Last bowel movement one day ago, no melena or red blood in stool Past Medical History: Anxiety, HTN, obesity Past Surgical History: Cholecystectomy, gastric sleeve Social History: Smoker: Other (nicotine vape use ) Alcohol: Denies ETOH Use Drugs: Marijuana Lives In: Home Family History: Noncontributory Review of Systems: Constitutional: no fever, chill, weight loss HEENT: no eye pain, no hearing loss, no oral lesion, no scleral icterus Heart: no chest pain, no chest pressure Lung: no cough, no dyspnea with exertion Abdomen: see HPI Physical exam: General: NAD, AAOX3 Chest: lung maloney clear to auscultation Heart: RRR, no murmur Abdomen: [id number] LLQ tenderness to palpation, +BS Labs: Labs Test 06/23/24 11:30 06/22/24 19:55 06/22/24 19:49 Range/Units White Blood Count 9.4 4.4-10.8 10^3/uL Red Blood Count 4.38 4.0-5.20 10^6/uL Hemoglobin 14.8 12.2-16.2 g/dL Hematocrit 43.5 36.0-46.0 % Mean Corpuscular Volume 99.2 80.0-100.0 fL Mean Corpuscular Hemoglobin 33.8 H 28.0-32.0 pg Mean Corpuscular Hemoglobin Concent 34.1 32.0-36.0 g/dL Red Cell Distribution Width 14.0 11.8-14.3 % Platelet Count 241 140-450 10^3/uL Mean Platelet Volume 8.9 6.9-10.8 fL Neutrophils (%) (Auto) 70.0 37.0-80.0 % Lymphocytes (%) (Auto) 19.4 10.0-50.0 % Monocytes (%) (Auto) 9.0 0.0-12.0 % Eosinophils (%) (Auto) 1.0 0.0-7.0 % Basophils (%) (Auto) 0.6 0.0-2.0 % Neutrophils # (Auto) 6.6 1.6-8.6 10 ^3/uL Lymphocytes # (Auto) 1.8 0.4-5.4 10 ^3/uL Monocytes # (Auto) 0.8 0-1.3 10 ^3/uL Eosinophils # (Auto) 0.1 0-0.8 10 ^3/uL Basophils # (Auto) 0.1 0-0.2 10 ^3/uL Nucleated Red Blood Cells 0.0 % Sodium Level 141 136-145 mmol/L Potassium Level 3.1 L 3.5-5.1 mmol/L Chloride Level 103 98-107 mmol/L Carbon Dioxide Level 30 20-31 mmol/L Anion Gap 8 5-15 Blood Urea Nitrogen < 5 L 9-23 mg/dL Creatinine 0.59 0.550-1.02 mg/dL Glomerular Filtration Rate Calc 131 >90 mL/min BUN/Creatinine Ratio 8.5 L 10.0-20.0 Serum Glucose 86 74-106 mg/dL Calcium Level 9.3 8.7-10.4 mg/dL Lipase 29 12-53 U/L Urine Color Light-yellow Yellow Urine Clarity Clear Clear Urine pH 6.5 5.0-9.0 Urine Specific [place] 1.010 1.001-1.035 Urine Protein Negative Negative Urine Ketones Negative Negative Urine Blood Negative Negative /uL Urine Nitrite Negative Negative Urine Bilirubin Negative Negative Urine Urobilinogen Normal Negative mg/dL Urine Leukocyte Esterase Negative Negative /uL Urine RBC <1 0 - 4 /hpf Urine WBC 5 0 - 5 /hpf Urine Squamous Epithelial Cells Few <5 /hpf Urine Bacteria None seen None Seen /hpf Urine Glucose Normal Normal mg/dL Urine Opiates Screen Neg NEGATIVE Urine Fentanyl Screen Neg NEGATIVE Urine Barbiturates Screen Neg NEGATIVE Urine Phencyclidine Screen Neg NEGATIVE Urine Amphetamines Screen Neg NEGATIVE Urine Benzodiazepines Screen Neg NEGATIVE Urine Cocaine Screen Neg NEGATIVE Urine Cannabinoids Screen Pos NEGATIVE Imaging: CT abdomen pelvis IMPRESSION: Diverticulitis with microperforation involving the distal descending colon. Otherwise no sizable, pericolonic fluid collections identified at this time. Recommend follow-up to resolution. Assessment: Acute diverticulitis with microperforation Abdominal pain Plan: Patient also seen by Dr. Justus Pena NPO IV fluids and IV antibiotics Pepcid Discussed plan with patient and RN Thank you for this consult Date of Service: Jun 23, 2024 Billing Provider: ASTON SPANN Common Visit Codes: CONSULT ONLY Consultation Codes: [id number] CONSULT <45MIN ASTON SPANN Jun 23, 2024 16:19
[2024-06-23] MEDS: ONDANSETRON HCL 4 MG/2 ML VIAL IV PRN (20:07)
[2024-06-23] MEDS: FAMOTIDINE (10MG/ML) 2ML VL IV SCH (21:31)
[2024-06-24] VITALS (8 sets, daily range): BP systolic 96–118; BP diastolic 50–68; PULSE 54–84; RESP 16–19; TEMP 97.1–98.5; O2SAT 94–98
[2024-06-24 06:55] LABS: Basophils # (auto) 0 10 ^3/uL (0-0.2); Basophils % (auto) 0.5 % (0.0-2.0); Eosinophils # (auto) 0.1 10 ^3/uL (0-0.8); Eosinophils % (auto) 1.3 % (0.0-7.0); Hematocrit 41.6 % (36.0-46.0); Hemoglobin 14.2 g/dL (12.2-16.2); Lymphocytes # (auto) 1.3 10 ^3/uL (0.4-5.4); Lymphocytes % (auto) 15.8 % (10.0-50.0); Mean Corpuscular Hemoglobin 33.9 pg (28.0-32.0); Mean Corpuscular Hgb Conc. 34.2 g/dL (32.0-36.0); Mean Corpuscular Volume 99.1 fL (80.0-100.0); Monocytes # (auto) 0.7 10 ^3/uL (0-1.3); Monocytes % (auto) 8.3 % (0.0-12.0); Neutrophils # (auto) 5.9 10 ^3/uL (1.6-8.6); Neutrophils % (auto) 74.1 % (37.0-80.0); Nucleated Red Blood Cells % 0.1 %; Platelet Count (auto) 239 10^3/uL (140-450); Red Cell Distribution Width 13.7 % (11.8-14.3)
[2024-06-24 07:24] LABS: Anion Gap 10 (5-15); Calcium 9.3 mg/dL (8.7-10.4); Carbon Dioxide 26 mmol/L (20-31); Chloride 106 mmol/L (98-107); Sodium 142 mmol/L (136-145)
[2024-06-24 07:25] LABS: Albumin 3.6 g/dL (3.2-4.8); Bilirubin, Total 0.8 mg/dL (0.2-1.0); Total Protein 6.6 g/dL (5.7-8.2)
[2024-06-24 07:32] LABS: Alkaline Phosphatase 122 U/L (46-116); BUN/Creatinine Ratio 8.9 (10.0-20.0); Blood Urea Nitrogen < 5 mg/dL (9-23); Glucose 72 mg/dL (74-106); Potassium 3.3 mmol/L (3.5-5.1)
[2024-06-24 07:33] LABS: Alanine Aminotransferase 72 U/L (7-40); Aspartate Aminotransferase 75 U/L (13-40)
[2024-06-24] MEDS: POTASSIUM CHLORIDE 40 MEQ, LIDOCAINE 1% (LOCAL ANESTH.) 4 ML in SODIUM CHL 0.9% 250 ML IV ONE (15:20)
--- NOTE | 2024-06-24 16:13 | DVHPN2 ---
Progress Note Date Seen: Jun 24, 2024 Medical Necessity Reason Pt with a Central, PICC or Fol: No Subjective Patient reports: No new complaints Review of Systems: HEENT:Normal, CVS:Normal, RESPIRATORY:Normal, GI:Normal, :Normal, MSK:Normal, NEURO:Normal Objective vital signs Vital Sign Date Time Temp Pulse Resp B/P (MAP) Pulse Ox O2 Delivery O2 Flow Rate FiO2 06/24/24 12:52 98.0 54 16 101/59 (73) 95 98.0 06/24/24 08:00 Room Air* 0 21 Total Intake and Output 06/23/24 06/23/24 06/24/24 15:00 23:00 07:00 Intake Total 50 ml 100 ml 700 ml Balance 50 ml 100 ml 700 ml medications Current Medications Medications Dose Ordered Sig/Chikis Route Start Time Stop Time Status Last Admin Dose Admin Ceftriaxone Sodium 50 ml @ 100 mls/hr DAILY@09 IV 06/23/24 09:00 06/24/24 09:07 100 MLS/HR Metronidazole 100 ml @ 100 mls/hr Q8HR IV 06/23/24 06:00 06/24/24 13:40 100 MLS/HR Sodium Chloride 1,000 ml @ 90 mls/hr Q11H7M IV 06/23/24 01:45 06/24/24 12:14 90 MLS/HR Ondansetron HCl 4 mg Q4HP PRN IV 06/23/24 01:45 06/23/24 20:07 4 MG Morphine Sulfate 2 mg Q4HPRN PRN IV 06/23/24 01:45 06/24/24 12:15 2 MG Famotidine 20 mg Q12HR IV 06/23/24 22:00 06/24/24 09:07 20 MG Examination: GENERAL:Normal, HEENT:Normal, NECK:Normal, LUNGS:Normal, CVS:Normal, ABDOMEN:Normal, MSK:Normal, SKIN:Normal, NEURO:Normal, :Normal laboratory and microbiology Laboratory Tests 06/24/24 05:57 Test 06/24/24 05:57 Range/Units Serum Glucose 72 L 74-106 mg/dL Problem List/Assessment/Plan Problem List/Assessment/Plan #1 acute diverticulitis with microperforation: npo, ivf, iv antibiotics, ct abd in am #2 obesity Plan discussed with: Patient Date of Service: Jun 24, 2024 Billing Provider: JENY KRAUS MD Common Visit Codes: [id number] INP/OBS CARE(HIGH) JENY KRAUS MD Jun 24, 2024 16:13
[2024-06-24] MEDS: LORazepam 2MG/ML-1ML VIAL IV PRN (16:37)
--- NOTE | 2024-06-24 17:36 | DVHPN2 ---
Progress Note - Dictate Date Seen: Jun 24, 2024 Medical Necessity Reason Pt with a Central, PICC or Fol: No Subjective No new complaints Abdominal pain is improving vital signs Vital Sign Date Time Temp Pulse Resp B/P (MAP) Pulse Ox O2 Delivery O2 Flow Rate FiO2 06/24/24 16:40 98.5 62 17 115/50 (71) 98 98.5 06/24/24 08:00 Room Air* 0 21 Total Intake and Output 06/23/24 06/23/24 06/24/24 15:00 23:00 07:00 Intake Total 50 ml 100 ml 700 ml Balance 50 ml 100 ml 700 ml medications Current Medications Medications Dose Ordered Sig/Chikis Route Start Time Stop Time Status Last Admin Dose Admin Ceftriaxone Sodium 50 ml @ 100 mls/hr DAILY@09 IV 06/23/24 09:00 06/24/24 09:07 100 MLS/HR Metronidazole 100 ml @ 100 mls/hr Q8HR IV 06/23/24 06:00 06/24/24 13:40 100 MLS/HR Sodium Chloride 1,000 ml @ 90 mls/hr Q11H7M IV 06/23/24 01:45 06/24/24 12:14 90 MLS/HR Ondansetron HCl 4 mg Q4HP PRN IV 06/23/24 01:45 06/23/24 20:07 4 MG Morphine Sulfate 2 mg Q4HPRN PRN IV 06/23/24 01:45 06/24/24 12:15 2 MG Famotidine 20 mg Q12HR IV 06/23/24 22:00 06/24/24 09:07 20 MG Lorazepam 0.5 mg Q8HP PRN IV 06/24/24 16:15 06/24/24 16:37 0.5 MG objective General: NAD, AAOX3 Chest: lung maloney clear to auscultation Heart: RRR, no murmur Abdomen: [id number]-fw-[id number] LLQ tenderness to palpation, +BS laboratory and microbiology Laboratory Tests 06/24/24 05:57 Test 06/24/24 05:57 Range/Units Serum Glucose 72 L 74-106 mg/dL Problems(with codes): (1) Diverticulitis of intestine Prognosis Plan IV fluid hydration, IV antibiotics NPO Repeat CT in the a.m. Surgical consult pending Outpatient elective colonoscopy advised once acute diverticulitis resolves Plan discussed with: Patient KAY GIBBS MD Jun 24, 2024 17:36
[2024-06-25] VITALS (8 sets, daily range): BP systolic 99–126; BP diastolic 63–81; PULSE 53–100; RESP 17–19; TEMP 97.4–98.6; O2SAT 94–99
[2024-06-25 07:23] LABS: Basophils # (auto) 0.1 10 ^3/uL (0-0.2); Basophils % (auto) 0.8 % (0.0-2.0); Eosinophils # (auto) 0.1 10 ^3/uL (0-0.8); Eosinophils % (auto) 1.9 % (0.0-7.0); Hematocrit 41.3 % (36.0-46.0); Hemoglobin 13.9 g/dL (12.2-16.2); Lymphocytes # (auto) 1.8 10 ^3/uL (0.4-5.4); Lymphocytes % (auto) 22.2 % (10.0-50.0); Mean Corpuscular Hemoglobin 33.9 pg (28.0-32.0); Mean Corpuscular Hgb Conc. 33.8 g/dL (32.0-36.0); Mean Corpuscular Volume 100.3 fL (80.0-100.0); Monocytes # (auto) 0.9 10 ^3/uL (0-1.3); Monocytes % (auto) 11.4 % (0.0-12.0); Neutrophils # (auto) 5.1 10 ^3/uL (1.6-8.6); Neutrophils % (auto) 63.7 % (37.0-80.0); Nucleated Red Blood Cells % 0.1 %; Platelet Count (auto) 251 10^3/uL (140-450); Red Blood Cells 4.11 10^6/uL (4.0-5.20); Red Cell Distribution Width 13.7 % (11.8-14.3)
[2024-06-25 07:37] LABS: Alkaline Phosphatase 107 U/L (46-116); Anion Gap 11 (5-15); Calcium 9.2 mg/dL (8.7-10.4); Carbon Dioxide 22 mmol/L (20-31); Potassium 3.5 mmol/L (3.5-5.1); Sodium 142 mmol/L (136-145)
[2024-06-25 07:39] LABS: Albumin 3.6 g/dL (3.2-4.8); Aspartate Aminotransferase 32 U/L (13-40)
[2024-06-25 07:40] LABS: Bilirubin, Total 0.5 mg/dL (0.2-1.0); Total Protein 6.5 g/dL (5.7-8.2)
[2024-06-25 07:44] LABS: Alanine Aminotransferase 45 U/L (7-40); BUN/Creatinine Ratio 9.1 (10.0-20.0); Blood Urea Nitrogen < 5 mg/dL (9-23); Chloride 109 mmol/L (98-107); Glucose 58 mg/dL (74-106)
[2024-06-25] MEDS: IOHEXOL 300 MG/ML 100ML BOTTLE IJ ONE (08:08)
--- NOTE | 2024-06-25 08:54 | DVH ---
CLINICAL INFORMATION: 24 years old, Female; DIVERTICULITIS. TECHNIQUE: Axial CT images of the abdomen and pelvis were obtained after the uneventful administrati on of 100 mL Omnipaque 300 IV contrast. Coronal and sagittal reformatted images were obtained, review ed, and stored. All CT scans at this medical facility are performed using dose modulation techniques as appropriate to a performed exam including the following: Automated exposure control was utilized; adjustment of the MA and/or KV according to patient size; and use of iterative reconstruction technKlosetshop ue. CTDIvol = 24.71 mGy DLP = 1415.26 mGy-cm COMPARISON: Noncontrast enhanced CT dated 06/22/2024. FINDINGS: Lung bases: Atelectasis in the lung bases. Liver: Mild hepatic steatosis. Biliary: Cholecystectomy. Spleen: Unremarkable. Pancreas: Unremarkable. No inflammatory changes, ductal dilatation, or mass identified. Adrenal glands: Unremarkable. No mass. Kidneys: No hydronephrosis or mass. Aorta/Vascular: No aneurysm or significant calcification. Retroperitoneum: Small subcentimeter retroperitoneal lymph nodes. Bowel/mesentery: Nonspecific nondilated fluid-filled small bowel loops. No small bowel obstruction. A ppendix is visualized and appears unremarkable. Inflammatory stranding again seen adjacent to the pr oximal sigmoid colon. Previously seen locules of gas adjacent to the sigmoid colon have near complete ly resolved since the prior CT. No evidence of abscess. No free air visualized elsewhere in the abdom en or pelvis. Mildly prominent mesenteric lymph nodes, mostly in the right lower abdomen. Pelvic organs: Grossly unremarkable. Bladder: Unremarkable. No mass. Abdominal wall: No mass or hernia. Bones: No acute fracture or focal intraosseous lesion. IMPRESSION: 1. Findings consistent with sigmoid diverticulitis. Previously seen locules of gas adjacent to the si gmoid colon suggesting micro perforation appear to be nearly completely resolved. No evidence of absc ess. 2. Additional findings as described above.
--- NOTE | 2024-06-25 15:04 | DVHPN2 ---
Progress Note Date Seen: Jun 25, 2024 Medical Necessity Reason Pt with a Central, PICC or Fol: No Subjective Patient reports: No new complaints Review of Systems: HEENT:Normal, CVS:Normal, RESPIRATORY:Normal, GI:Normal, :Normal, MSK:Normal, NEURO:Normal Objective vital signs Vital Sign Date Time Temp Pulse Resp B/P (MAP) Pulse Ox O2 Delivery O2 Flow Rate FiO2 06/25/24 13:00 98.2 69 17 99/81 (87) 98 98.2 06/25/24 08:00 Room Air* 0 21 Total Intake and Output 06/24/24 06/24/24 06/25/24 15:00 23:00 07:00 Intake Total 150 ml 1200 ml 0 ml Balance 150 ml 1200 ml 0 ml medications Current Medications Medications Dose Ordered Sig/Chikis Route Start Time Stop Time Status Last Admin Dose Admin Ceftriaxone Sodium 50 ml @ 100 mls/hr DAILY@09 IV 06/23/24 09:00 06/25/24 08:49 100 MLS/HR Metronidazole 100 ml @ 100 mls/hr Q8HR IV 06/23/24 06:00 06/25/24 13:56 100 MLS/HR Sodium Chloride 1,000 ml @ 90 mls/hr Q11H7M IV 06/23/24 01:45 06/25/24 11:53 90 MLS/HR Ondansetron HCl 4 mg Q4HP PRN IV 06/23/24 01:45 06/23/24 20:07 4 MG Morphine Sulfate 2 mg Q4HPRN PRN IV 06/23/24 01:45 06/25/24 11:51 2 MG Famotidine 20 mg Q12HR IV 06/23/24 22:00 06/25/24 08:49 20 MG Lorazepam 0.5 mg Q8HP PRN IV 06/24/24 16:15 06/25/24 12:51 0.5 MG Examination: GENERAL:Normal, HEENT:Normal, NECK:Normal, LUNGS:Normal, CVS:Normal, ABDOMEN:Normal, MSK:Normal, SKIN:Normal, NEURO:Normal, :Normal laboratory and microbiology Laboratory Tests 06/25/24 05:24 Test 06/25/24 05:24 Range/Units Serum Glucose 58 L 74-106 mg/dL Problem List/Assessment/Plan Problem List/Assessment/Plan #1 acute diverticulitis with microperforation: improved, clear liquid diet, ivf, iv antibiotics #2 obesity #3 anxiety Plan discussed with: Patient My Orders My Orders Orders - JENY KRAUS MD Procedure Category Date Status Time Ct Ab Pel With Iv Con CT 06/25/24 Resulted Only 08:00 Lorazepam 2mg/Ml Inj PHA 06/24/24 In Process (Ativan Inj) 16:15 Date of Service: Jun 25, 2024 Billing Provider: JENY KRAUS MD Common Visit Codes: [id number] INP/OBS CARE(HIGH) JENY KRAUS MD Jun 25, 2024 15:04
--- NOTE | 2024-06-25 16:06 | DVHPN2 ---
Progress Note - Dictate Date Seen: Jun 25, 2024 Medical Necessity Reason Pt with a Central, PICC or Fol: No Subjective No new complaints Abdominal pain is improving vital signs Vital Sign Date Time Temp Pulse Resp B/P (MAP) Pulse Ox O2 Delivery O2 Flow Rate FiO2 06/25/24 13:00 98.2 69 17 99/81 (87) 98 98.2 06/25/24 08:00 Room Air* 0 21 Total Intake and Output 06/24/24 06/24/24 06/25/24 15:00 23:00 07:00 Intake Total 150 ml 1200 ml 0 ml Balance 150 ml 1200 ml 0 ml medications Current Medications Medications Dose Ordered Sig/Chikis Route Start Time Stop Time Status Last Admin Dose Admin Ceftriaxone Sodium 50 ml @ 100 mls/hr DAILY@09 IV 06/23/24 09:00 06/25/24 08:49 100 MLS/HR Metronidazole 100 ml @ 100 mls/hr Q8HR IV 06/23/24 06:00 06/25/24 13:56 100 MLS/HR Sodium Chloride 1,000 ml @ 90 mls/hr Q11H7M IV 06/23/24 01:45 06/25/24 11:53 90 MLS/HR Ondansetron HCl 4 mg Q4HP PRN IV 06/23/24 01:45 06/23/24 20:07 4 MG Morphine Sulfate 2 mg Q4HPRN PRN IV 06/23/24 01:45 06/25/24 11:51 2 MG Famotidine 20 mg Q12HR IV 06/23/24 22:00 06/25/24 08:49 20 MG Lorazepam 0.5 mg Q8HP PRN IV 06/24/24 16:15 06/25/24 12:51 0.5 MG objective General: NAD, AAOX3 Chest: lung maloney clear to auscultation Heart: RRR, no murmur Abdomen: Nmuc-[id number]-ikujuveg LLQ tenderness to palpation, +BS laboratory and microbiology Laboratory Tests 06/25/24 05:24 Test 06/25/24 05:24 Range/Units Serum Glucose 58 L 74-106 mg/dL Repeat Abd CT ABD IMPRESSION: 1. Findings consistent with sigmoid diverticulitis. Previously seen locules of gas adjacent to the sigmoid colon suggesting micro perforation appear to be nearly completely resolved. No evidence of abscess. 2. Additional findings as described above. Problems(with codes): (1) Abdominal pain (2) Diverticulitis of intestine (3) Obesity (BMI 35.0-39.9 without comorbidity) (4) Fatty liver (5) Elevated liver enzymes Prognosis Assessment and plan Mild sigmoid diverticulitis with microperforation that is resolving Patient has been started on clear liquid diet Continue IV fluid hydration IV antibiotics Mild elevation in liver enzymes improving likely related to underlying hepatic steatosis Continue to monitor Outpatient follow up with me upon discharge to discuss elective colonoscopy and to monitor her liver enzymes Plan discussed with: Patient KAY GIBBS MD Jun 25, 2024 16:06
--- NOTE | 2024-06-25 16:28 | DVHINCON2 ---
Date of service: Jun 25, 2024 Family History: Cerebrovascular accident (CVA) G8 MOTHER, Onset:40's - 50 Hypertension G8 MOTHER, Onset:30's - 40 G8 FATHER (40'S) Allergies: Coded Allergies: NO KNOWN ALLERGIES (Unverified , 07/31/18) Home Meds Active Scripts Ondansetron Odt 4MG Tab (ZOFRAN PO) 4 Mg Tb, 4 MG PO Q8HP PRN for 5 Days, #15 TAB ODT TAB-DISSOLVE IN MOUTH, THEN SWALLOW Prov:ESTELLA VILLATORO MD 09/06/23 Tramadol Hcl (Tramadol Hcl) 50 Mg Tab, 50 MG PO TIDP PRN for 5 Days, #15 TAB Prov:JENY KRAUS MD 02/22/23 Cephalexin Monohydrate (Cephalexin) 500 Mg Tab, 1 TAB PO TID for 7 Days, #21 TAB Prov:JENY KRAUS MD 02/22/23 Gabapentin (Gabapentin) 300 Mg Cap, 1 CAP PO TID, #30 CAP 5 Refills Prov:PITA NICKERSON PAC 07/14/22 Vital Signs Vital Signs Date Time Temp Pulse Resp B/P (MAP) Pulse Ox O2 Delivery O2 Flow Rate FiO2 06/25/24 13:00 98.2 69 17 99/81 (87) 98 98.2 06/25/24 08:00 Room Air* 0 21 Labs/Diagnostic Data Labs Test 06/25/24 05:24 06/22/24 19:55 06/22/24 19:49 Range/Units White Blood Count 8.0 4.4-10.8 10^3/uL Red Blood Count 4.11 4.0-5.20 10^6/uL Hemoglobin 13.9 12.2-16.2 g/dL Hematocrit 41.3 36.0-46.0 % Mean Corpuscular Volume 100.3 H 80.0-100.0 fL Mean Corpuscular Hemoglobin 33.9 H 28.0-32.0 pg Mean Corpuscular Hemoglobin Concent 33.8 32.0-36.0 g/dL Red Cell Distribution Width 13.7 11.8-14.3 % Platelet Count 251 140-450 10^3/uL Mean Platelet Volume 9.0 6.9-10.8 fL Neutrophils (%) (Auto) 63.7 37.0-80.0 % Lymphocytes (%) (Auto) 22.2 10.0-50.0 % Monocytes (%) (Auto) 11.4 0.0-12.0 % Eosinophils (%) (Auto) 1.9 0.0-7.0 % Basophils (%) (Auto) 0.8 0.0-2.0 % Neutrophils # (Auto) 5.1 1.6-8.6 10 ^3/uL Lymphocytes # (Auto) 1.8 0.4-5.4 10 ^3/uL Monocytes # (Auto) 0.9 0-1.3 10 ^3/uL Eosinophils # (Auto) 0.1 0-0.8 10 ^3/uL Basophils # (Auto) 0.1 0-0.2 10 ^3/uL Nucleated Red Blood Cells 0.1 % Sodium Level 142 136-145 mmol/L Potassium Level 3.5 3.5-5.1 mmol/L Chloride Level 109 H 98-107 mmol/L Carbon Dioxide Level 22 20-31 mmol/L Anion Gap 11 5-15 Blood Urea Nitrogen < 5 L 9-23 mg/dL Creatinine 0.55 0.550-1.02 mg/dL Glomerular Filtration Rate Calc 133 >90 mL/min BUN/Creatinine Ratio 9.1 L 10.0-20.0 Serum Glucose 58 L 74-106 mg/dL Calcium Level 9.2 8.7-10.4 mg/dL Total Bilirubin 0.5 0.2-1.0 mg/dL Aspartate Amino Transferase (AST) 32 13-40 U/L Alanine Aminotransferase (ALT) 45 H 7-40 U/L Alkaline Phosphatase 107 46-116 U/L Total Protein 6.5 5.7-8.2 g/dL Albumin 3.6 3.2-4.8 g/dL Lipase 29 12-53 U/L Urine Color Light-yellow Yellow Urine Clarity Clear Clear Urine pH 6.5 5.0-9.0 Urine Specific [place] 1.010 1.001-1.035 Urine Protein Negative Negative Urine Ketones Negative Negative Urine Blood Negative Negative /uL Urine Nitrite Negative Negative Urine Bilirubin Negative Negative Urine Urobilinogen Normal Negative mg/dL Urine Leukocyte Esterase Negative Negative /uL Urine RBC <1 0 - 4 /hpf Urine WBC 5 0 - 5 /hpf Urine Squamous Epithelial Cells Few <5 /hpf Urine Bacteria None seen None Seen /hpf Urine Glucose Normal Normal mg/dL Urine Opiates Screen Neg NEGATIVE Urine Fentanyl Screen Neg NEGATIVE Urine Barbiturates Screen Neg NEGATIVE Urine Phencyclidine Screen Neg NEGATIVE Urine Amphetamines Screen Neg NEGATIVE Urine Benzodiazepines Screen Neg NEGATIVE Urine Cocaine Screen Neg NEGATIVE Urine Cannabinoids Screen Pos NEGATIVE Assessment 404608 RESOLVING AC DIVERTICULITIS CONTINUE CONSERVATIVE MANAGEMENT ALLOW CLEAR LIQUIDS IV ABX Plan discussed with: Patient HEMA GIBBS MD Jun 25, 2024 16:28
--- NOTE | 2024-06-25 16:33 | DVHINCON2 ---
DATE OF CONSULTATION: 06/25/2024 HISTORY OF PRESENT ILLNESS: This patient is 24 years old, coming in with left lower quadrant pain, now feeling better, some nausea, no vomiting, no constipation, diarrhea. No hematemesis, melena. No bleeding per rectum. PAST MEDICAL HISTORY: No diabetes, hypertension. PAST SURGICAL HISTORY: Gastric sleeve surgery and gallbladder surgery. PHYSICAL EXAMINATION: VITAL SIGNS: Afebrile, stable signs. HEENT: With no evidence of pallor, cyanosis, or jaundice. NECK: Supple, nontender with no thyromegaly, lymphadenopathy. CHEST AND LUNGS: Clear. HEART: Within normal limits. ABDOMEN: Soft, minimally tender in the left lower quadrant. No rebound. EXTREMITIES: Unremarkable. NEUROLOGIC: Intact. CLINICAL IMPRESSION: Resolving acute diverticulitis. PLAN: Plan will be to manage conservatively. No indication for urgent surgery and she can have a clear liquid diet as planned. MD WALT Silvestre/RUB TID: [id number] RECEIPT: [id number] cc: Edilson Miles NP
[2024-06-26 01:00] VITALS: BP 105/62; PULSE 47; RESP 19; TEMP 97.7; O2SAT 98
[2024-06-26 05:00] VITALS: BP 91/62; PULSE 56; RESP 18; TEMP 98; O2SAT 96
[2024-06-26 07:50] LABS: Anion Gap 9 (5-15); Calcium 8.9 mg/dL (8.7-10.4); Carbon Dioxide 22 mmol/L (20-31); Potassium 3.8 mmol/L (3.5-5.1); Sodium 139 mmol/L (136-145)
[2024-06-26 07:51] LABS: Chloride 108 mmol/L (98-107)
[2024-06-26 08:03] LABS: Basophils # (auto) 0.1 10 ^3/uL (0-0.2); Basophils % (auto) 1.3 % (0.0-2.0); Eosinophils # (auto) 0.3 10 ^3/uL (0-0.8); Eosinophils % (auto) 4.2 % (0.0-7.0); Hemoglobin 13.4 g/dL (12.2-16.2); Lymphocytes # (auto) 2.2 10 ^3/uL (0.4-5.4); Lymphocytes % (auto) 31.4 % (10.0-50.0); Mean Corpuscular Hemoglobin 33.5 pg (28.0-32.0); Mean Corpuscular Hgb Conc. 33.5 g/dL (32.0-36.0); Mean Corpuscular Volume 99.7 fL (80.0-100.0); Monocytes # (auto) 0.7 10 ^3/uL (0-1.3); Monocytes % (auto) 10.6 % (0.0-12.0); Neutrophils # (auto) 3.7 10 ^3/uL (1.6-8.6); Neutrophils % (auto) 52.5 % (37.0-80.0); Nucleated Red Blood Cells % 0.1 %; Platelet Count (auto) 257 10^3/uL (140-450); Red Blood Cells 4.01 10^6/uL (4.0-5.20); Red Cell Distribution Width 13.5 % (11.8-14.3)
[2024-06-26 08:07] LABS: BUN/Creatinine Ratio 10.9 (10.0-20.0); Blood Urea Nitrogen < 5 mg/dL (9-23); Glucose 71 mg/dL (74-106)
[2024-06-26 09:00] VITALS: BP 119/70; PULSE 64; RESP 18; TEMP 98.1; O2SAT 97
[2024-06-26 13:00] VITALS: BP 137/84; PULSE 59; RESP 18; TEMP 98.6; O2SAT 98
--- NOTE | 2024-06-26 13:06 | DVHPN2 ---
Progress Note Date Seen: Jun 26, 2024 Medical Necessity Reason Pt with a Central, PICC or Fol: No Objective vital signs Vital Sign Date Time Temp Pulse Resp B/P (MAP) Pulse Ox O2 Delivery O2 Flow Rate FiO2 06/26/24 11:00 66 16 121/76 06/26/24 09:00 98.1 97 98.1 06/26/24 08:00 Room Air* 0 21 Total Intake and Output 06/25/24 06/25/24 06/26/24 15:00 23:00 07:00 Intake Total 50 ml 1650 ml 1000 ml Balance 50 ml 1650 ml 1000 ml medications Current Medications Medications Dose Ordered Sig/Chikis Route Start Time Stop Time Status Last Admin Dose Admin Ceftriaxone Sodium 50 ml @ 100 mls/hr DAILY@09 IV 06/23/24 09:00 06/26/24 09:01 100 MLS/HR Metronidazole 100 ml @ 100 mls/hr Q8HR IV 06/23/24 06:00 06/26/24 05:21 100 MLS/HR Sodium Chloride 1,000 ml @ 90 mls/hr Q11H7M IV 06/23/24 01:45 06/25/24 20:59 90 MLS/HR Ondansetron HCl 4 mg Q4HP PRN IV 06/23/24 01:45 06/23/24 20:07 4 MG Morphine Sulfate 2 mg Q4HPRN PRN IV 06/23/24 01:45 06/26/24 11:00 2 MG Famotidine 20 mg Q12HR IV 06/23/24 22:00 06/26/24 09:01 20 MG Lorazepam 0.5 mg Q8HP PRN IV 06/24/24 16:15 06/25/24 23:42 0.5 MG laboratory and microbiology Laboratory Tests 06/26/24 05:26 Test 06/26/24 05:26 Range/Units Serum Glucose 71 L 74-106 mg/dL Problem List/Assessment/Plan Problem List/Assessment/Plan AFEBRILE VSS ABD SOFT NON TENDER CONTINUE CLOSE OBSERVATION Plan discussed with: Patient Dietary Evaluation Review Comments: Encourage weight control management and avoid nicotine and drug use Expected Outcomes/Goals: gradual weight loss HEMA GIBBS MD Jun 26, 2024 13:06
[2024-06-26] MEDS ORDERED: LEVO500T91 PO (15:04)
[2024-06-26] MEDS ORDERED: METR-344 PO (15:04)
--- NOTE | 2024-06-26 15:09 | DVHDS2 ---
Discharge Summary Date of Admission Jun 23, 2024 at 01:45 Date of Discharge: Jun 26, 2024 Admitting Diagnosis Acute diverticulitis Labs/Diagnostic Data: Laboratory Results Test 06/26/24 05:26 06/25/24 05:24 06/22/24 19:55 06/22/24 19:49 White Blood Count 7.0 10^3/uL (4.4-10.8) Red Blood Count 4.01 10^6/uL (4.0-5.20) Hemoglobin 13.4 g/dL (12.2-16.2) Hematocrit 40.0 % (36.0-46.0) Mean Corpuscular Volume 99.7 fL (80.0-100.0) Mean Corpuscular Hemoglobin 33.5 pg (28.0-32.0) Mean Corpuscular Hemoglobin Concent 33.5 g/dL (32.0-36.0) Red Cell Distribution Width 13.5 % (11.8-14.3) Platelet Count 257 10^3/uL (140-450) Mean Platelet Volume 9.0 fL (6.9-10.8) Neutrophils (%) (Auto) 52.5 % (37.0-80.0) Lymphocytes (%) (Auto) 31.4 % (10.0-50.0) Monocytes (%) (Auto) 10.6 % (0.0-12.0) Eosinophils (%) (Auto) 4.2 % (0.0-7.0) Basophils (%) (Auto) 1.3 % (0.0-2.0) Neutrophils # (Auto) 3.7 10 ^3/uL (1.6-8.6) Lymphocytes # (Auto) 2.2 10 ^3/uL (0.4-5.4) Monocytes # (Auto) 0.7 10 ^3/uL (0-1.3) Eosinophils # (Auto) 0.3 10 ^3/uL (0-0.8) Basophils # (Auto) 0.1 10 ^3/uL (0-0.2) Nucleated Red Blood Cells 0.1 % Sodium Level 139 mmol/L (136-145) Potassium Level 3.8 mmol/L (3.5-5.1) Chloride Level 108 mmol/L (98-107) Carbon Dioxide Level 22 mmol/L (20-31) Anion Gap 9 (5-15) Blood Urea Nitrogen < 5 mg/dL (9-23) Creatinine 0.46 mg/dL (0.550-1.02) Glomerular Filtration Rate Calc 139 mL/min (>90) BUN/Creatinine Ratio 10.9 (10.0-20.0) Serum Glucose 71 mg/dL (74-106) Calcium Level 8.9 mg/dL (8.7-10.4) Total Bilirubin 0.5 mg/dL (0.2-1.0) Aspartate Amino Transferase (AST) 32 U/L (13-40) Alanine Aminotransferase (ALT) 45 U/L (7-40) Alkaline Phosphatase 107 U/L (46-116) Total Protein 6.5 g/dL (5.7-8.2) Albumin 3.6 g/dL (3.2-4.8) Lipase 29 U/L (12-53) Urine Color Light-yellow (Yellow) Urine Clarity Clear (Clear) Urine pH 6.5 (5.0-9.0) Urine Specific [place] 1.010 (1.001-1.035) Urine Protein Negative (Negative) Urine Ketones Negative (Negative) Urine Blood Negative /uL (Negative) Urine Nitrite Negative (Negative) Urine Bilirubin Negative (Negative) Urine Urobilinogen Normal mg/dL (Negative) Urine Leukocyte Esterase Negative /uL (Negative) Urine RBC <1 /hpf (0 - 4) Urine WBC 5 /hpf (0 - 5) Urine Squamous Epithelial Cells Few /hpf (<5) Urine Bacteria None seen /hpf (None Seen) Urine Glucose Normal mg/dL (Normal) Urine Opiates Screen Neg (NEGATIVE) Urine Fentanyl Screen Neg (NEGATIVE) Urine Barbiturates Screen Neg (NEGATIVE) Urine Phencyclidine Screen Neg (NEGATIVE) Urine Amphetamines Screen Neg (NEGATIVE) Urine Benzodiazepines Screen Neg (NEGATIVE) Urine Cocaine Screen Neg (NEGATIVE) Urine Cannabinoids Screen Pos (NEGATIVE) Other Laboratory Tests 06/26/24 05:26 Brief Hx & Hospital Course: History of Present Illness 24-year-old female presents for evaluation of abdominal pain. Patient presents with a one day history of lower abdominal/suprapubic abdominal pain that is nonradiating with associated nausea. She also reports intermittent episodes of chills. No diarrhea. No other acute complaints reported. Course of hospitalization: Surgical consultation was obtained. Patient had repeat CT scan of the abdomen and pelvis with contrast which revealed no free air where the previous CT scan showed microperforation. Patient has been started on clear liquid diet. Patient has been without pain. White blood cell count has been normal. Patient was requesting to be discharged home. Patient has been cleared by surgery. She will be continued on a full liquid diet for one week. She was instructed to follow up with the discharge Clinic in one week. For pain she was instructed to take [id number] Tylenol 650 mg as needed for opmtlmkg-ke-hgsnrc pain. Patient will be continued on antibiotic therapy with Levaquin 500 mg p.o. daily times 10 days as well as Flagyl 500 mg p.o. 3 times a day for 10 days. She was instructed to continue all previous home medications. All questions answered. Physical examination General: Alert and Oriented x3. No acute distress. Well-nourished. Obese Eyes: EOMI. Anicteric. HENT: Moist mucous membranes. Lungs: Clear to auscultation bilaterally. No accessory muscle use. Cardiovascular: Regular rate and rhythm. No murmur. No JVD. Abdomen: Soft, non-tender and non-distended. No palpable masses. Extremities: No edema. Non-tender. Skin: No rashes or lesions. Warm. Neurologic: No focal neurological deficits. CN II-XII grossly intact, but not individually tested. Psychiatric: Cooperative. Appropriate mood and affect. Total time spent with patient discussing and formulating plan of care: 35 minutes. This medical document was created using an electronic medical record system with [employer] dictation system. Although this document has been carefully reviewed, there may still be some phonetic and typographical errors. These areas are purely typographical due to imperfections of the software programs, and do not reflect any compromise in the patient's medical care. Consults/Reason for consult General surgery: Perforated diverticulum Condition at Discharge: Fair Final Diagnosis/Problems List Acute diverticulitis with perforation Secondary Diagnosis: Obesity Anxiety disorder Discharge Disposition: Home Discharge Instruct/Medications Diet: See Comment Diet comment: Full liquid diet x1 week Activity: No Restrictions, As Tolerated Follow Up/Referral: Discharge Clinic in one week Dr. Sebastien Jerome in 2-3 weeks Medications: Flagyl 500 mg p.o. t.i.d. times 10 days Levaquin 500 mg p.o. daily x10 days 36 Discharge Statement: "Patient was advised to return to the ER or call 911 if any headaches, dizziness, shortness of breath, chest pain, abdominal pain, bleeding, fevers, or worsening of medical condition. Patient was counseled about treatment plan, medications, possible side effects, patientverbalized understanding. All questions were answered to the best of my ability. This discharge took greater then 30 minutes in planning, reviewing documentation, counseling the patient, and discussing with other team members." ASSESSMENT ASSESSMENT Assessment Acute diverticulitis with perforation Date of Service: Jun 26, 2024 Billing Provider: MADI SAXENA NP Common Visit Codes: 88253-AVC/OBS DISCH DAY >30min MADI SAXENA NP Jun 26, 2024 15:09
--- NOTE | 2024-06-26 15:44 | DVHPN2 ---
Progress Note - Dictate Date Seen: Jun 26, 2024 Medical Necessity Reason Pt with a Central, PICC or Fol: No Subjective No new complaints Abdominal pain is improving vital signs Vital Sign Date Time Temp Pulse Resp B/P (MAP) Pulse Ox O2 Delivery O2 Flow Rate FiO2 06/26/24 13:00 98.6 59 18 137/84 (101) 98 98.6 06/26/24 08:00 Room Air* 0 21 Total Intake and Output 06/25/24 06/25/24 06/26/24 15:00 23:00 07:00 Intake Total 50 ml 1650 ml 1000 ml Balance 50 ml 1650 ml 1000 ml medications Current Medications Medications Dose Ordered Sig/Chikis Route Start Time Stop Time Status Last Admin Dose Admin Ceftriaxone Sodium 50 ml @ 100 mls/hr DAILY@09 IV 06/23/24 09:00 06/26/24 09:01 100 MLS/HR Metronidazole 100 ml @ 100 mls/hr Q8HR IV 06/23/24 06:00 06/26/24 13:05 100 MLS/HR Sodium Chloride 1,000 ml @ 90 mls/hr Q11H7M IV 06/23/24 01:45 06/25/24 20:59 90 MLS/HR Ondansetron HCl 4 mg Q4HP PRN IV 06/23/24 01:45 06/23/24 20:07 4 MG Morphine Sulfate 2 mg Q4HPRN PRN IV 06/23/24 01:45 06/26/24 11:00 2 MG Famotidine 20 mg Q12HR IV 06/23/24 22:00 06/26/24 09:01 20 MG Lorazepam 0.5 mg Q8HP PRN IV 06/24/24 16:15 06/26/24 15:14 0.5 MG objective General: NAD, AAOX3 Chest: lung maloney clear to auscultation Heart: RRR, no murmur Abdomen: Mfuc-gl-eauzxhim LLQ tenderness to palpation, +BS laboratory and microbiology Laboratory Tests 06/26/24 05:26 Test 06/26/24 05:26 Range/Units Serum Glucose 71 L 74-106 mg/dL Problems(with codes): (1) Elevated liver enzymes (2) Fatty liver (3) Abdominal pain (4) Diverticulitis of intestine Prognosis PLAN Advance diet as tolerated Discharge planning in progress Continue oral antibiotics and stool softeners Outpt f/u with me in 4-6 weeks Dietary Evaluation Review Comments: Encourage weight control management and avoid nicotine and drug use Expected Outcomes/Goals: gradual weight loss Plan discussed with: Patient KAY GIBBS MD Jun 26, 2024 15:44
[2024-06-26 16:34] VITALS: BP 132/80; PULSE 56; RESP 20; TEMP 98.4; O2SAT 98
== END 2024-06-26 16:42 | disposition home or self-care (01) | DRG 244 ==
LOC: ER 19:26 → OVERFLOW 06-23 01:45 → WEST WING 06-23 18:01
PROVIDERS: ADMIT Nurse Practitioner Acute Care; ATTEND Nurse Practitioner Acute Care
DX: K57.20 Diverticulitis of large intestine with perforation and abscess without bleeding (principal); K76.0 Fatty (change of) liver, not elsewhere classified; E66.01 Morbid (severe) obesity due to excess calories; F41.9 Anxiety disorder, unspecified; I10 Essential (primary) hypertension; F17.200 Nicotine dependence, unspecified, uncomplicated; Z90.49 Acquired absence of other specified parts of digestive tract; Z82.49 Family history of ischemic heart disease and other diseases of the circulatory system; Z82.3 Family history of stroke; Z68.39 Body mass index [BMI] 39.0-39.9, adult; Z79.899 Other long term (current) drug therapy
CPT/HCPCS: 36415; 74176; 74177; 80048; 80053; 80307; 81001; 83690; 85025; 99291; G0378; J2003; J2405; J3490; Q0162

== ENCOUNTER 2025-01-02 13:57 | Emergency (ER) | payer MEDICAID ==
[~2025-01-02] VITALS: Ht 160 cm; Wt 95.8 kg
[~2025-01-02 13:57] MED LIST changes: +LEVO500T91 PO; +METR-344 PO
[2025-01-02 14:29] LABS: Urine Protein, UAD 1+ (Negative)
[2025-01-02 16:03] LABS: Hematocrit 44.0 % (36.0-46.0); Hemoglobin 15.4 g/dL (12.2-16.2); Mean Corpuscular Hemoglobin 33.9 pg (28.0-32.0); Mean Corpuscular Volume 96.7 fL (80.0-100.0); Nucleated Red Blood Cells % 0.1 %
[2025-01-02] MEDS: SODIUM CHLORIDE 0.9% 1,000 ML IV ONE (16:04)
[2025-01-02] MEDS: PANTOPRAZOLE 40 MG/10 ML VIAL INJ IV ONE (16:04)
[2025-01-02] MEDS: ONDANSETRON HCL 4 MG/2 ML VIAL IV ONE (16:04)
[2025-01-02] MEDS: MORPHINE SULFATE 4 MG/ML SYR/VIAL IV ONE (16:05)
[2025-01-02 16:15] LABS: Alanine Aminotransferase 17 U/L (7-40); Albumin 4.6 g/dL (3.2-4.8); Alkaline Phosphatase 77 U/L (46-116); Anion Gap 10 (5-15); BUN/Creatinine Ratio 10.3 (10.0-20.0); Bilirubin, Total 0.5 mg/dL (0.2-1.0); Blood Urea Nitrogen 9 mg/dL (9-23); Calcium 9.8 mg/dL (8.7-10.4); Carbon Dioxide 28 mmol/L (20-31); Chloride 103 mmol/L (98-107); Glucose 90 mg/dL (74-106); Potassium 3.2 mmol/L (3.5-5.1); Sodium 141 mmol/L (136-145); Total Protein 7.8 g/dL (5.7-8.2)
--- NOTE | 2025-01-02 16:55 | ED.PDOC ---
History of Present Illness HPI Comments 24 y/o F presents with c/c nausea and vomiting and generalized weakness. Patient endorses on sudden onset of symptoms, this morning. She reports having an EGD done, yesterday, and drinking alcohol the day prior. Denies any abdominal pain, bloody or bilious vomitus, diarrhea, constipation, urinary symptoms, fever, chills, or further associated symptoms. Chief Complaint: Nausea/Vomiting Time Seen by MD: 14:15 Primary Care Provider: NONE Reviewed Notes: Nurses Notes, Medications, Allergies Allergies: Coded Allergies: NO KNOWN ALLERGIES (Unverified , 07/31/18) Home Meds Active Scripts Metronidazole (Flagyl) 500 Mg Tab, 1 TAB PO TID for 10 Days, #30 TAB Prov:MADI SAXENA BLEACHING 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 06/26/24 Levofloxacin Hemihydrate (LEVAQUIN 500 MG) 500 Mg Tab, 1 TAB PO DAILY for 10 Days, #10 TAB Prov:MADI SAXENA BLEACHING 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 06/26/24 Ondansetron Odt 4MG Tab (ZOFRAN PO) 4 Mg Tb, 4 MG PO Q8HP PRN for 5 Days, #15 TAB ODT TAB-DISSOLVE IN MOUTH, THEN SWALLOW Prov:ESTELLA VILLATORO MD 09/06/23 Tramadol Hcl (Tramadol Hcl) 50 Mg Tab, 50 MG PO TIDP PRN for 5 Days, #15 TAB Prov:JENY KRAUS MD 02/22/23 Cephalexin Monohydrate (Cephalexin) 500 Mg Tab, 1 TAB PO TID for 7 Days, #21 TAB Prov:JENY KRAUS MD 02/22/23 Gabapentin (Gabapentin) 300 Mg Cap, 1 CAP PO TID, #30 CAP 5 Refills Prov:PITA NICKERSON PAC 07/14/22 Information Source: Patient Mode of Arrival: Ambulatory Severity: Moderate Timing: Hours Duration: Since onset Past Medical History PAST MEDICAL HISTORY: Anxiety, HTN Surgical History: Cholecystectomy TEMPERATURE INSPECTOR History: Denies all TEMPERATURE INSPECTOR Hx Family History Family History: Family hx of HTN Social History Smoker: Other Alcohol: Denies ETOH Use Drugs: Marijuana Lives In: Home All Other Systems: Reviewed and Negative (Comprehensive review of systems are negative unless otherwise stated in HPI) Physical Exam General Appearance: No Apparent Distress, Obese HEENT: Normal ENT Inspection, Pharynx Normal, TMs Normal Neck: Full Range of Motion, Non-Tender, Normal, Normal Inspection Respiratory: Chest Non-Tender, Lungs Clear, No Accessory Muscle Use, No Respiratory Distress, Normal Breath Sounds Cardiovascular: No Edema, No JVD, No Murmur, No Gallop, Normal Peripheral Pulses, Regular Rate/Rhythm Breast Exam: Deferred Gastrointestinal: No Organomegaly, Non Tender, No Pulsatile Mass, Normal Bowel Sounds, Soft Genitalia: Deferred Pelvic: Deferred Rectal: Deferred Extremities: No calf tenderness, Normal capillary refill, Normal inspection, Normal range of motion, Non-tender, No pedal edema Musculoskeletal : Apperance: Normal Neurologic: Alert, wood furniture assembler II-XII nml as Tested, No Motor Deficits, Normal Affect, Normal Mood, No Sensory Deficits Cerebellar Function: Normal Reflexes: Normal Skin: Dry, Normal Color, Warm Lymphatic: No Adenopathy Was a procedure done? Was a procedure done?: No Differential Dx Considerations may include: gastritis, gastroenteritis, GERD, PUD, post-procedure complication, dehydration, UTI, among others X-Ray, Labs, Meds, VS Vital Signs Date Time Temp Pulse Resp B/P (MAP) Pulse Ox O2 Delivery O2 Flow Rate FiO2 01/02/25 18:11 98.1 68 18 131/72 (91) 94 98.1 01/02/25 16:38 66 14 115/57 01/02/25 16:05 69 16 106/61 01/02/25 15:58 98.8 69 16 106/61 (76) 99 98.8 01/02/25 15:58 69 16 99 Room Air 01/02/25 14:12 98.4 122 13 125/86 (99) 97 98.4 Lab Test 01/02/25 15:48 01/02/25 14:16 Range/Units White Blood Count 10.6 4.4-10.8 10^3/uL Red Blood Count 4.55 4.0-5.20 10^6/uL Hemoglobin 15.4 12.2-16.2 g/dL Hematocrit 44.0 36.0-46.0 % Mean Corpuscular Volume 96.7 80.0-100.0 fL Mean Corpuscular Hemoglobin 33.9 H 28.0-32.0 pg Mean Corpuscular Hemoglobin Concent 35.0 32.0-36.0 g/dL Red Cell Distribution Width 12.9 11.8-14.3 % Platelet Count 314 140-450 10^3/uL Mean Platelet Volume 8.5 6.9-10.8 fL Neutrophils (%) (Auto) 73.2 37.0-80.0 % Lymphocytes (%) (Auto) 17.1 10.0-50.0 % Monocytes (%) (Auto) 8.0 0.0-12.0 % Eosinophils (%) (Auto) 0.3 0.0-7.0 % Basophils (%) (Auto) 1.4 0.0-2.0 % Neutrophils # (Auto) 7.8 1.6-8.6 10 ^3/uL Lymphocytes # (Auto) 1.8 0.4-5.4 10 ^3/uL Monocytes # (Auto) 0.8 0-1.3 10 ^3/uL Eosinophils # (Auto) 0 0-0.8 10 ^3/uL Basophils # (Auto) 0.1 0-0.2 10 ^3/uL Nucleated Red Blood Cells 0.1 % Sodium Level 141 136-145 mmol/L Potassium Level 3.2 L 3.5-5.1 mmol/L Chloride Level 103 98-107 mmol/L Carbon Dioxide Level 28 20-31 mmol/L Anion Gap 10 5-15 Blood Urea Nitrogen 9 9-23 mg/dL Creatinine 0.87 0.550-1.02 mg/dL Glomerular Filtration Rate Calc 97 >90 mL/min BUN/Creatinine Ratio 10.3 10.0-20.0 Serum Glucose 90 74-106 mg/dL Calcium Level 9.8 8.7-10.4 mg/dL Total Bilirubin 0.5 0.2-1.0 mg/dL Aspartate Amino Transferase (AST) 20 13-40 U/L Alanine Aminotransferase (ALT) 17 7-40 U/L Alkaline Phosphatase 77 46-116 U/L Total Protein 7.8 5.7-8.2 g/dL Albumin 4.6 3.2-4.8 g/dL Urine Color Yellow Yellow Urine Clarity Turbid H Clear Urine pH 6.0 5.0-9.0 Urine Specific [place] 1.034 1.001-1.035 Urine Protein 1+ H Negative Urine Ketones 1+ H Negative Urine Blood Negative Negative /uL Urine Nitrite Negative Negative Urine Bilirubin Negative Negative Urine Urobilinogen 3 H Negative mg/dL Urine Leukocyte Esterase 2+ Negative /uL Urine RBC 4 0 - 4 /hpf Urine Microscopic WBC 33 H 0-5 /HPF Urine Squamous Epithelial Cells Mod <5 /hpf Urine Bacteria None seen None Seen /hpf Urine Hyaline Casts Many 0 - 2 /lpf Urine Mucus Many None Seen Urine Glucose Trace Normal mg/dL Current Medications Medications (Trade) Dose Ordered Sig/Chikis Route Start Time Stop Time Status Last Admin Sodium Chloride 1,000 ml @ 1,000 mls/hr Q1H ONCE IV 01/02/25 15:30 01/02/25 16:29 DC 01/02/25 16:04 Ondansetron HCl (Zofran) 4 mg ONCE ONCE IV 01/02/25 15:30 01/02/25 15:31 DC 01/02/25 16:04 Pantoprazole Sodium (Protonix) 40 mg ONCE ONCE IV 01/02/25 15:30 01/02/25 15:31 DC 01/02/25 16:04 Morphine Sulfate 4 mg ONCE ONCE IV 01/02/25 15:30 01/02/25 15:31 DC 01/02/25 16:05 Time of 1ST Reevaluation: 14:45 Reevaluation 1ST: Unchanged Patient Education/Counseling: Diagnosis, Treatment, Need For Follow Up Family Education/Counseling: No Family Present Additional Information Previous encounters reviewed: June 23, 2024 encounter for acute diverticulitis Labs/tests ordered: CXR, CMP. CBC, UA Imaging results in concurrent agreement with: CXR Additional historians interviewed: N/A Discuss care to medical personal and: patient SEPSIS Sepsis Screen Date sepsis recognized/suspect: Jan 02, 2025 Time Sepsis recognized/suspect: 1413 Recent Procedure: No On Antibiotic Therapy: No Respiratory Rate >20: No Heart Rate >90: Yes Temp<36 C (96.8 F) or >38.3 C: No SBP <90 or MAP <65 mmHG: No New Acute Mental Status Change: No Is the patient on CPAP, BIPAP,: No Physician Orders Chest Portable (01/02/25 15:26) Vital Signs Date Time Temp Pulse Resp B/P (MAP) Pulse Ox O2 Delivery O2 Flow Rate FiO2 01/02/25 18:11 98.1 68 18 131/72 (91) 94 98.1 01/02/25 16:38 66 14 115/57 01/02/25 16:05 69 16 106/61 7/19/25 15:58 98.8 69 16 106/61 (76) 99 98.8 01/02/25 15:58 69 16 99 Room Air 01/02/25 14:12 98.4 122 13 125/86 (99) 97 98.4 Laboratory Tests Test 01/02/25 15:48 White Blood Count 10.6 10^3/uL (4.4-10.8) Medications Medications Dose Ordered Sig/Chikis Route Start Time Stop Time Status Last Admin Dose Admin Morphine Sulfate 4 mg ONCE ONCE IV 01/02/25 15:30 01/02/25 15:31 DC 01/02/25 16:05 Ondansetron HCl 4 mg ONCE ONCE IV 01/02/25 15:30 01/02/25 15:31 DC 01/02/25 16:04 Pantoprazole Sodium 40 mg ONCE ONCE IV 01/02/25 15:30 01/02/25 15:31 DC 01/02/25 16:04 Sodium Chloride 1,000 ml @ 1,000 mls/hr Q1H ONCE IV 01/02/25 15:30 01/02/25 16:29 DC 01/02/25 16:04 Departure 1 Departure Time of Disposition: 18:46 (Patient presented with abdominal pain that was concerning for possible appendicits, gastritis, cholecystitis, colitis, gastroenteritis, sbo, or orther possible surgical emergency. Data: 1. I ordered and reviewed the result of at least 3 labs including a CBC, BMP, and Urinalysis. 2. I independently interpreted the following tests: CXR is benignRisk:This patient has a high risk of morbidity due to further diagnostic testing or treatment and may suffer from an acute abdominal process disorder. Workup reveals intractable abdominal pain and patient should be admitted for further workup. and possible expert consultation. ) Impression: Primary Impression: Intractable abdominal pain Additional Impression: UTI (urinary tract infection) Qualified Codes: N30.00 - Acute cystitis without hematuria Disposition: ADMITTED INPATIENT Admit to: Med Surg Condition: Serious Critical Care Note Critical Care Time?: Yes Critical care comment: Intractable abdominal pain Authorized and Performed by: Evelin Palma MD Total critical care time: Approximately 38 minutes Due to a high probability of clinically significant, life threatening deterioration, the patient required my highest level of preparedness to intervene emergently and I personally spent this critical care time directly and personally managing the patient. This critical care time included obtaining a history; examining the patient; pulse oximetry; ordering and review of studies; arranging urgent treatment with development of a management plan; evaluation of patient's response to treatment; frequent reassessment; and, discussions with other providers. This critical care time was performed to assess and manage the high probability of imminent, life-threatening deterioration that could result in multi-organ failure. It was exclusive of separately billable procedures and treating other patients and teaching time. Please see my other sections and the rest of the note for further information on patient assessment and treatment. Stability Stability form required: No Heart Score Heart Score: Heart Score Response (Comments) Value History N/A 0 EKG N/A 0 Age N/A 0 Risk Factors N/A 0 Troponin N/A 0 Total 0 I personally scribed for EVELIN PALMA MD ([email or web address]) on 01/02/25 at 16:55. Electronically submitted by Dakota Thomas ([email or web address]). I personally scribed for EVELIN PALMA MD ([email or web address]) on 01/02/25 at 17:06. Electronically submitted by Dakota Thomas ([email or web address]). I personally scribed for EVELIN PALMA MD ([email or web address]) on 01/02/25 at 17:09. Electronically submitted by Dakota Thomas ([email or web address]). EVELIN PALMA MD Jan 02, 2025 16:55
--- NOTE | 2025-01-02 17:11 | DVH ---
Chest portable CLINICAL INDICATION: s/p egd with epigastric pain Comparison: 07/14/2022 FINDINGS: Heart size is normal. No infiltrates or effusions. No bony thoracic abnormalities. IMPRESSION: 1. Normal chest x-ray.
[2025-01-02] MEDS: cefTRIAXone 1GM/50ML D5W 50 ML IV ONE (18:41)
[2025-01-02] MEDS ORDERED: CEFD300C2 PO (19:43)
--- NOTE | 2025-01-02 19:43 | ED.PDOC ---
Departure 1 Departure Time of Disposition: 19:42 (Patient came to me and reports she is feeling significantly better would like to go home. We will discharge patient home with outpatient follow up) Impression: Primary Impression: Intractable abdominal pain Additional Impression: UTI (urinary tract infection) Qualified Codes: N30.00 - Acute cystitis without hematuria Disposition: HOME / SELF CARE / HOMELESS Condition: Stable Additional Instructions: You have a urinary tract infection. You were prescribed antibiotics. Please take as directed. You can take Tylenol Motrin as needed for pain. It is important that he follow up with the regular doctor within 1 week to ensure you are doing better. If your symptoms worsen or you have any other concerns then please return to the emergency room. e-Prescriptions Cefdinir (Cefdinir) 300 Mg Cap 1 CAP PO BID for 5 Days, #14 CAP Prov: EVELIN JEFFERS MD 01/02/25 EVELIN JEFFERS MD Jan 02, 2025 19:43
[2025-01-02] MEDS ORDERED: hydrALAZINE HCL 20 MG/ML VL IV PRN (19:45)
[2025-01-02] MEDS ORDERED: HYDROcodone-ACET 5/325MG TAB PO PRN (19:45)
[2025-01-02] MEDS ORDERED: ONDANSETRON HCL 4 MG/2 ML VIAL IV PRN (19:45)
[2025-01-02] MEDS ORDERED: DOCUSATE SOD 100 MG CAP PO PRN (19:45)
[2025-01-02] MEDS ORDERED: ACETAMINOPHEN 325 MG TAB PO PRN (19:45)
[2025-01-02] MEDS: POTASSIUM CHL 20 Meq TABLET PO ONE (20:11)
[2025-01-02 20:17] VITALS: BP 149/92; PULSE 71; RESP 18; TEMP 97.5; O2SAT 98
[2025-01-02] MEDS ORDERED: SODIUM CHLOR 0.9% PF (SALINE LOCK) 10ML VIAL/SYR IV SCH (22:00)
[2025-01-03] MEDS ORDERED: cefTRIAXone 1GM/50ML D5W 50 ML IV SCH (09:00)
[2025-01-03] MEDS ORDERED: PANTOPRAZOLE 40 MG/10 ML VIAL INJ IV SCH (10:00)
== END 2025-01-02 20:30 | disposition home or self-care (01) ==
LOC: ER 13:57
DX: N39.0 Urinary tract infection, site not specified (principal); R10.9 Unspecified abdominal pain; F12.90 Cannabis use, unspecified, uncomplicated; F41.9 Anxiety disorder, unspecified; I10 Essential (primary) hypertension; Z90.49 Acquired absence of other specified parts of digestive tract; Z79.899 Other long term (current) drug therapy
CPT/HCPCS: 36415; 71045; 80053; 81001; 85025; 87086; 96361; 96365; 96375; 99285; J0696; J2270; J2405; J2470; J7030

== ENCOUNTER 2025-05-05 23:31 | Emergency (ER) | payer MEDICAID ==
[~2025-05-05] VITALS: Ht 157.5 cm; Wt 92.2 kg
[~2025-05-05 23:31] MED LIST changes: +CEFD300C2 PO
[2025-05-06 00:19] LABS: Potassium 3.9 mmol/L (3.5-5.1)
[2025-05-06 00:20] LABS: Anion Gap 13 (5-15); Calcium 9.2 mg/dL (8.7-10.4); Carbon Dioxide 25 mmol/L (20-31)
[2025-05-06 00:25] LABS: Glucose 93 mg/dL (74-106)
[2025-05-06 00:29] LABS: Hematocrit 41.6 % (36.0-46.0); Hemoglobin 13.9 g/dL (12.2-16.2); Mean Corpuscular Hemoglobin 31.9 pg (28.0-32.0); Mean Corpuscular Volume 95.2 fL (80.0-100.0); Nucleated Red Blood Cells % 0.0 %
[2025-05-06 00:41] LABS: BUN/Creatinine Ratio 8.9 (10.0-20.0); Blood Urea Nitrogen < 5 mg/dL (9-23); Chloride 109 mmol/L (98-107); Sodium 147 mmol/L (136-145)
--- NOTE | 2025-05-06 00:45 | ED.PDOC ---
History of Present Illness HPI Comments 25 year old female presents to the ED with a chief complaint of pelvic pain onset 1 week. Patient states she has been experiencing pelvic pain and vaginal bleeding for the past week. She saw OBGYN Dr. Blacmkan 1 week ago, was told she was having a miscarriage, prescribed medication and took it same day. Patient states she experienced heavy bleeding after medication, passed a large clot. Since then, she has been experiencing back pain, pelvic pain, vaginal bleeding, uses about 4 pads a day. Has follow up appointment with Dr. Blackman on 05/07/25. 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 Denies fever, chills, dysuria, nausea, vomiting, diarrhea, headache, SI, HI. No other symptoms or modifying factors present at this time. PHYSICAL EXAM: General: Awake, alert and oriented. No acute distress. Skin: Skin in warm, dry and intact without rashes or lesions. HEENT: The head is normocephalic and atraumatic. Conjunctivae are clear without exudates or hemorrhage. Sclera is non-icteric. Neck: Normal range of motion. No JVD. Cardiac: Regular rate Respiratory: No signs of respiratory distress. No Stridor. Extremities: Upper and lower extremities are atraumatic in appearance without deformity. Neurological: The patient is awake, alert and oriented to person, place, and time with normal speech. Speech is clear. There is no facial asymmetry. Psychiatric: Appropriate mood and affect. Good judgement and insight. REVIEW OF SYSTEMS: General: No fever, no chills, or fatigue HEENT: No sore throat, no earache, no congestion, no neck pain. Cardiac: No chest pain. No palpitations. Lungs: No shortness of breath, no cough. GI: No nausea, no vomiting, no diarrhea, no constipation, no abdominal pain : vaginal bleeding. pelvic pain. Musculoskeletal: back pain. No joint pain , no joint swelling, no extremity edema. Skin: No rash, no itching. Neuro: No headache, no dizziness, no weakness (And as sated in HPI) Chief Complaint: Pelvic Pain Time Seen by MD: 00:20 Primary Care Provider: NONE Reviewed Notes: Medications, Allergies Allergies: Coded Allergies: NO KNOWN ALLERGIES (Unverified , 07/31/18) Home Meds Active Scripts Lidocaine (Lidocaine Patch 5%) 5 % Pad, 5 % EX DAILY for 5 Days, #5 PAD Prov:CELIO ARANDA MD 05/06/25 Acetaminophen (Acetaminophen Er) 650 Mg Tab, 650 MG PO TIDPRN PRN, #15 TAB Prov:CELIO ARANDA MD 05/06/25 Cefdinir (Cefdinir) 300 Mg Cap, 1 CAP PO BID for 5 Days, #14 CAP Prov:EVELIN JEFFERS MD 01/02/25 Metronidazole (Flagyl) 500 Mg Tab, 1 TAB PO TID for 10 Days, #30 TAB Prov:MADI SAXENA TERRITORY MANAGER 06/26/24 Levofloxacin Hemihydrate (LEVAQUIN 500 MG) 500 Mg Tab, 1 TAB PO DAILY for 10 Days, #10 TAB Prov:MADI SAXENA TERRITORY MANAGER 06/26/24 Ondansetron Odt 4MG Tab (ZOFRAN PO) 4 Mg Tb, 4 MG PO Q8HP PRN for 5 Days, #15 TAB ODT TAB-DISSOLVE IN MOUTH, THEN SWALLOW Prov:ESTELLA VILLATORO MD 09/06/23 Tramadol Hcl (Tramadol Hcl) 50 Mg Tab, 50 MG PO TIDP PRN for 5 Days, #15 TAB Prov:JENY KRAUS MD 02/22/23 Cephalexin Monohydrate (Cephalexin) 500 Mg Tab, 1 TAB PO TID for 7 Days, #21 TAB Prov:JENY KRAUS MD 02/22/23 Gabapentin (Gabapentin) 300 Mg Cap, 1 CAP PO TID, #30 CAP 5 Refills Prov:PITA NICKERSON PAC 07/14/22 Information Source: Patient Mode of Arrival: Ambulatory Severity: Moderate Timing: Days Duration: Since onset Prehospital treatment: None Past Medical History PAST MEDICAL HISTORY: Anxiety, HTN Surgical History: Cholecystectomy Surgical History (Other): gastric bypass [employer] TEARING History: Denies all [employer] Hx Family History Family History: Family hx of HTN Social History Smoker: Other Alcohol: Denies ETOH Use Drugs: Marijuana Lives In: Home Was a procedure done? Was a procedure done?: No Differential Dx Considerations may include: Differential diagnoses considered include but are not limited to threatened , incomplete , missed , ectopic , ruptured ectopic , urinary tract infection, subchorionic hemorrhage, abnormal uterine bleeding, STI, trauma, vaginitis, other. X-Ray, Labs, Meds, VS Vital Signs Date Time Temp Pulse Resp B/P (MAP) Pulse Ox O2 Delivery O2 Flow Rate FiO2 05/06/25 05:50 98.0 75 19 122/73 (89) 96 98.0 05/06/25 01:48 98.7 87 18 130/86 (101) 97 98.7 05/06/25 01:48 87 18 97 Room Air* 0 21 05/05/25 23:38 98.5 89 20 132/80 96 98.5 Lab Test 05/06/25 01:47 05/06/25 00:00 Range/Units Urine Color Light-yellow Yellow Urine Clarity Clear Clear Urine pH 6.0 5.0-9.0 Urine Specific [place] 1.009 1.001-1.035 Urine Protein Negative Negative Urine Ketones Negative Negative Urine Blood Trace H Negative /uL Urine Nitrite Negative Negative Urine Bilirubin Negative Negative Urine Urobilinogen Normal Negative mg/dL Urine Leukocyte Esterase Trace Negative /uL Urine RBC None seen 0 - 4 /hpf Urine Microscopic WBC 4 0-5 /HPF Urine Squamous Epithelial Cells Few <5 /hpf Urine Bacteria None seen None Seen /hpf Urine Glucose Normal Normal mg/dL White Blood Count 7.6 4.4-10.8 10^3/uL Red Blood Count 4.37 4.0-5.20 10^6/uL Hemoglobin 13.9 12.2-16.2 g/dL Hematocrit 41.6 36.0-46.0 % Mean Corpuscular Volume 95.2 80.0-100.0 fL Mean Corpuscular Hemoglobin 31.9 28.0-32.0 pg Mean Corpuscular Hemoglobin Concent 33.5 32.0-36.0 g/dL Red Cell Distribution Width 13.3 11.8-14.3 % Platelet Count 282 140-450 10^3/uL Mean Platelet Volume 8.8 6.9-10.8 fL Neutrophils (%) (Auto) 56.9 37.0-80.0 % Lymphocytes (%) (Auto) 33.1 10.0-50.0 % Monocytes (%) (Auto) 8.3 0.0-12.0 % Eosinophils (%) (Auto) 1.0 0.0-7.0 % Basophils (%) (Auto) 0.7 0.0-2.0 % Neutrophils # (Auto) 4.3 1.6-8.6 10 ^3/uL Lymphocytes # (Auto) 2.5 0.4-5.4 10 ^3/uL Monocytes # (Auto) 0.6 0-1.3 10 ^3/uL Eosinophils # (Auto) 0.1 0-0.8 10 ^3/uL Basophils # (Auto) 0.1 0-0.2 10 ^3/uL Nucleated Red Blood Cells 0.0 % Sodium Level 147 H 136-145 mmol/L Potassium Level 3.9 3.5-5.1 mmol/L Chloride Level 109 H 98-107 mmol/L Carbon Dioxide Level 25 20-31 mmol/L Anion Gap 13 5-15 Blood Urea Nitrogen < 5 L 9-23 mg/dL Creatinine 0.56 0.550-1.02 mg/dL Glomerular Filtration Rate Calc 131 >90 mL/min BUN/Creatinine Ratio 8.9 L 10.0-20.0 Serum Glucose 93 74-106 mg/dL Calcium Level 9.2 8.7-10.4 mg/dL Beta HCG, Quantitative 1036.9 H 1.5-4.2 mIU/mL Current Medications Medications (Trade) Dose Ordered Sig/Chikis Route Start Time Stop Time Status Last Admin Ketorolac Tromethamine (Toradol Injection) 30 mg ONCE ONCE IM 05/06/25 00:45 05/06/25 05:21 DC 05/06/25 01:40 Tramadol HCl (Ultram) 50 mg ONCE ONCE PO 05/06/25 00:45 05/06/25 00:46 DC 05/06/25 01:39 Acetaminophen (Tylenol Tablet) 650 mg ONCE ONCE PO 05/06/25 00:45 05/06/25 00:46 DC 05/06/25 01:40 Time of 1ST Reevaluation: 00:50 Reevaluation 1ST: Unchanged Patient Education/Counseling: Need For Follow Up Family Education/Counseling: Need For Follow Up SEPSIS Sepsis Screen Date sepsis recognized/suspect: May 05, 2025 Time Sepsis recognized/suspect: 2340 Recent Procedure: No On Antibiotic Therapy: No Respiratory Rate >20: No Heart Rate >90: No Temp<36 C (96.8 F) or >38.3 C: No SBP <90 or MAP <65 mmHG: No New Acute Mental Status Change: No Is the patient on CPAP, BIPAP,: No Physician Orders Ob Ultrasound Comp Less 14wks (05/06/25 02:19) Vital Signs Date Time Temp Pulse Resp B/P (MAP) Pulse Ox O2 Delivery O2 Flow Rate FiO2 05/06/25 05:50 98.0 75 19 122/73 (89) 96 98.0 05/06/25 01:48 98.7 87 18 130/86 (101) 97 98.7 05/06/25 01:48 87 18 97 Room Air* 0 21 05/05/25 23:38 98.5 89 20 132/80 96 98.5 Laboratory Tests Test 05/06/25 00:00 White Blood Count 7.6 10^3/uL (4.4-10.8) Departure 1 Departure Time of Disposition: 04:55 Impression: Primary Impression: Miscarriage Additional Impression: Vaginal bleeding Disposition: HOME / SELF CARE / HOMELESS Condition: Stable Additional Instructions: ED DISCHARGE INSTRUCTIONS Instructions: Please read all instructions provided in this packet carefully. Although you have been discharged from the Emergency Department, this does not mean that you have a "clean bill of health". No definitive diagnosis for your symptoms has been made today. It is possible that you are in the process of developing a serious illness. This is why you must return to the ED without fail if any new or worsening symptoms (especially if your symptoms include chest pain, trouble breathing, abdominal pain, fever, headache, confusion, trouble seeing, or trouble walking) Keep upcoming appointment with your income tax advisor as scheduled. If you are unable to get an appointment, return to the ED for re-evaluation. Where to get help 24 hours a day, 7 days a week Call Crisis Lifeline at [facility]. Call 0-432-888-ZVBO ( ). Text HOME to 908181 to access the Crisis Text Line. Consider saving these numbers in your phone. Go to [email or web address] for more information or to chat online. e-Prescriptions Lidocaine (Lidocaine Patch 5%) 5 % Pad 5 % EX DAILY for 5 Days, #5 PAD Prov: CELIO ARANDA MD 05/06/25 Acetaminophen (Acetaminophen Er) 650 Mg Tab 650 MG PO TIDPRN PRN, #15 TAB Prov: CELIO ARANDA MD 05/06/25 Comments MDM: 25-year-old female with continued vaginal bleeding after miscarriage. Patient is not anemic, hypotensive over tachycardic. No retained products of conception on ultrasound. Patient is felt stable for discharge home to follow up with her income tax advisor as scheduled. Extensive evaluation was performed in attempt to identify or rule out: (See differential diagnosis section) The following tests were ordered, and results were reviewed by me and discussed with patient: (See diagnostic results section) Diagnosis or treatment significantly limited by social determinants of health: N/A Decision regarding hospitalization or escalation of hospital level of care: Risks and benefits of admission for further treatment of patient's condition was considered however due to patient's stable condition patient will be discharged to follow up closely or return to care for worsening of condition or inability to follow up. Critical Care Note Critical Care Time?: No Stability Stability form required: No Heart Score Heart Score: Heart Score Response (Comments) Value History N/A 0 EKG N/A 0 Age N/A 0 Risk Factors N/A 0 Troponin N/A 0 Total 0 I personally scribed for CELIO ARANDA MD ([email or web address]) on 05/06/25 at 00:45. Electronically submitted by Lupis Santa ([email or web address]). CELIO ARANDA MD May 06, 2025 00:45
[2025-05-06] MEDS: ACETAMINOPHEN 325 MG TAB PO ONE (01:40)
[2025-05-06] MEDS: KETOROLAC TROMETH 30 MG/ML 1ML VIAL IM ONE (01:40)
[2025-05-06 01:48] VITALS: PULSE 87; RESP 18; O2SAT 97
[2025-05-06 02:40] LABS: Urine Protein, UAD Negative (Negative)
--- NOTE | 2025-05-06 04:37 | DVH ---
INDICATION: Heavy Vaginal Bleeding after miscarriage TECHNIQUE: Multiple real-time grayscale transabdominal and transvaginal sonographic images along with color and duplex Doppler of the uterus and ovaries were obtained. COMPARISON: None FINDINGS: The uterus measures 6.8 x 4.2 x 5.9 cm. The endometrial stripe measures 9 mm. No evidence of fluid or products within the endometrial canal. The ovaries are not visualized due to technique, positioning, overlying bowel- gas, and/or body habitus. No visualized ascites. IMPRESSION: 1. No evidence of retained products of conception. 2. Nonvisualized ovaries.
[2025-05-06] MEDS ORDERED: ACET650T12 PO (05:21)
[2025-05-06] MEDS ORDERED: LIDO5PAD12 EX (05:21)
[2025-05-06 05:50] VITALS: BP 122/73; PULSE 75; RESP 19; TEMP 98; O2SAT 96
== END 2025-05-06 05:51 | disposition home or self-care (01) ==
LOC: EEVIPCON 23:31 → ER 23:31
DX: O03.9 Complete or unspecified spontaneous abortion without complication (principal); O26.891 Other specified pregnancy related conditions, first trimester; R10.20 Pelvic and perineal pain unspecified side; I10 Essential (primary) hypertension; Z3A.01 Less than 8 weeks gestation of pregnancy; Z79.899 Other long term (current) drug therapy; Z90.49 Acquired absence of other specified parts of digestive tract
CPT/HCPCS: 36415; 76801; 80048; 81001; 84702; 85025; 96372; 99285; J1885